=== PATIENT | male | born 1965 | race Caucasian/White ===

== ENCOUNTER 2021-02-02 05:48 | Inpatient (IN) | payer MEDICAID, SELFPAY ==
[2021-02-02] VITALS (38 sets, daily range): BP systolic 75–155; BP diastolic 35–72; PULSE 84–180; RESP 14–26; TEMP 35.5–37.5; O2SAT 80–100; BMI 36.1
--- NOTE | ~2021-02-02 | US_ITS ---
EXAMINATION: ULTRASOUND-GUIDED DRAINAGE CLINICAL INFORMATION: Sepsis. Right perinephric abscess. COMPARISON: Previous CT of the abdomen and pelvis from earlier the same day TECHNIQUE: Procedure and risks and benefits including bleeding and infection were discussed with the patient and sister by telephone and informed consent was obtained. Patient was positioned in the left decubitus position. The right flank was prepped and draped in the usual sterile fashion. The skin and soft tissues were anesthetized with 1% lidocaine plain. Using ultrasound guidance and a 5 [place] rapid centesis catheter, access to the complex right retroperitoneal fluid collection was obtained. Over an 018 wire and following serial dilatation, a 14 [place] pigtail drainage catheter was positioned. 3 L of brown purulent appearing fluid was aspirated. Diagnostic specimen was sent. The exam was performed portably in the ICU. FINDINGS: There is a large complex right retroperitoneal fluid collection with internal echoes. US/US drain daphne retro perc IMPRESSION: Ultrasound-guided right retroperitoneal drainage.
--- NOTE | ~2021-02-02 | CT_ITS ---
EXAMINATION: CT CHEST WITHOUT CONTRAST CLINICAL INFORMATION: Status post intubation. COMPARISON: None. TECHNIQUE: Multidetector volumetric CT imaging of the chest was done. Axial MIP volume rendering provided. Sagittal and coronal reformatted images were obtained. This CT examination was performed using dose optimization techniques as appropriate, variously including the following: *Automated exposure control *Adjustment of mA and/or kV according to patient size (this includes techniques or standardized protocols for targeted exams where dose is matched to indication/reason for exam; i.e. extremities or head) *Use of iterative reconstruction technique DLP: 1896 mGy-cm FINDINGS: DUMPSTER OPERATOR: Bibasilar atelectasis or consolidation. LUNGS: There is moderate fluid/mucus filling both lower lobe bronchi. There is consolidation and atelectasis of nearly the entire right lower lobe and some of the right middle lobe. There are ill-defined vaguely nodular opacity scattered in the right upper lobe suspicious for aspiration. There is less pronounced atelectasis or consolidation in the left lower lobe with a few scattered ill-defined vaguely nodular opacities in the superior segment of the left lower lobe. MEDIASTINUM: The endotracheal tube is 4.4 cm above the noelle. A nasogastric tube terminates in the thoracic esophagus. There are a few benign sized lymph nodes in the subcarinal region. There are scattered coronary artery calcifications. PLEURA: There is a moderate-sized loculated pleural effusion posteriorly at the base with air within the effusion, suspicious for an empyema. There is a small left pleural effusion with some scattered air, also suspicious for empyema. AXILLA: No lymphadenopathy. UPPER ABDOMEN: There is a large partially visualized complex fluid collection with some higher density components and scattered air in the right subcutaneous diaphragmatic region posterior to the liver suspicious for an abscess. OSSEOUS STRUCTURES: There is [id number] multilevel degenerative disc disease. 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 CT/CT chest wo con IMPRESSION: 1. Endotracheal tube 4.4 cm above the noelle. Nasogastric tube in the mid thoracic esophagus. 2. Moderate mucous plugging of the bilateral lower lobe bronchi. Consolidation and atelectasis of nearly the entire right lower lobe, some of the right middle lobe, and some of the left lower lobe. Scattered ill-defined nodular opacities in the right upper lobe and superior segment left lower lobe which may represent areas of aspiration. 3. Moderate-sized loculated right pleural effusion with air suspicious for empyema. Small left pleural effusion with some air, suspicious for empyema. 4. Complex right subdiaphragmatic fluid collection with air suspicious for abscess. This Critical Result was discussed with Ross He M.D. on 02/02/2021 at 1036 hours.
--- NOTE | ~2021-02-02 | XR_ITS ---
EXAMINATION: XR CHEST CLINICAL INFORMATION: Assess subclavian catheter placement COMPARISON: Earlier exam same day TECHNIQUE: Portable chest 8:43 PM view of the chest was obtained. FINDINGS: Overlying structures limit detail assessment. Right-sided central line in place unchanged. ET tube NG tube remains stable grossly. Left-sided subclavian line in place with its tip overlying the region of the confluence of brachiocephalic vein. The course is somewhat very straight and recommend correlation with placement and with any blood return to verify venous placement. No gross pneumothorax. Progressive pulmonary edema pattern. XR/XR chest 1V IMPRESSION: Limited imaging as above. Left-sided subclavian line placed as above. Correlate with blood return to verify venous access. No pneumothorax.
--- NOTE | ~2021-02-02 | XR_ITS ---
EXAMINATION: XR CHEST CLINICAL INFORMATION: Intubation. COMPARISON: CT chest from the same day. Chest and right ribs 07/26/2017. TECHNIQUE: Portable AP upright view of the chest was obtained. FINDINGS: The endotracheal tube is 4 cm above the noelle. The nasogastric tube terminates below the diaphragm. Right internal jugular central venous catheter terminates at the cavoatrial junction. There is bibasilar atelectasis/consolidation, right greater than left. The right lung base air may be related to the empyema identified on the CT scan from the same day. There are ill-defined scattered small vaguely nodular opacities in both lungs. XR/XR chest 1V IMPRESSION: Endotracheal tube 4 cm above the noelle. Nasogastric tube below the diaphragm. Bibasilar atelectasis/consolidation and scattered ill-defined lung opacities. Air at the right lung base could be related to the empyema identified on the CT chest.
--- NOTE | ~2021-02-02 | CT_ITS ---
EXAMINATION: CT ABDOMEN AND PELVIS WITHOUT CONTRAST CLINICAL INFORMATION: Status post intubation. Infection. COMPARISON: None. TECHNIQUE: Multidetector volumetric imaging was performed from the superior aspect of the liver through the pubic symphysis. Sagittal and coronal reformatted images were obtained on the technologist's workstation. This CT examination was performed using dose optimization techniques as appropriate, variously including the following: *Automated exposure control *Adjustment of mA and/or kV according to patient size (this includes techniques or standardized protocols for targeted exams where dose is matched to indication/reason for exam; i.e. extremities or head) *Use of iterative reconstruction technique DLP: 1896 mGy-cm (includes abdomen and pelvis) FINDINGS: LUNG BASES: See chest report for full details. There is mucus plugging in both lower lobe bronchi, prominent right lower lobe and right middle lobe atelectasis/consolidation, left lower lobe atelectasis/consolidation, moderate right and small left pleural effusions with air, suspicious for empyemas. LIVER, GALLBLADDER, AND BILIARY TREE: The liver is normal in size, shape, and attenuation. No focal hepatic lesion or biliary ductal dilatation is present. There is cholelithiasis. PERITONEAL/RETROPERITONEAL SPACE: There is a large complex fluid collection with some areas of low density fluid, air, and some fat in the right subdiaphragmatic region posterior to the liver and extending to the right lower quadrant. This appears to compress and displace the right kidney medially and superiorly. Some of this fluid/air may be in the perirenal space. This is suspicious for a large abscess which measures proximally 24 x 18 x 17 cm (CC x TRV x AP). There is some swelling and heterogeneity of the right iliopsoas muscle extending distally toward the femoral insertion site. PANCREAS: Unremarkable. SPLEEN: Unremarkable. ADRENAL GLANDS: Unremarkable. KIDNEYS AND URETERS: As stated above, the right kidney appears to be decompressed and displaced medially, superiorly and anteriorly by the large right abdominal abscess. There is no definite hydronephrosis. There are a few calcifications present in the region of the proximal right ureter but the ureter is not defined and is difficult to determine if these are possibly ureteral or vascular. The left kidney is somewhat swollen with perinephric streaky densities. There is mild left hydronephrosis. There is at least one calculus in the left renal pelvis measuring 5 mm in diameter. There are additional smaller calculi in the left renal sinus portion which could be vascular or additional small renal calculi. BLADDER: There is a suprapubic catheter in place. GASTROINTESTINAL TRACT: The small and large bowel are unremarkable. The appendix is unremarkable. ABDOMINAL WALL: No significant hernia is appreciated. LYMPH NODES: Normal. VASCULAR: There are scattered atherosclerotic calcifications in the abdominal aorta and iliac arteries. PELVIC VISCERA: Unremarkable. OSSEOUS STRUCTURES: There is mild multilevel degenerative disc disease. 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 CT/CT abdomen pelvis wo con IMPRESSION: 1. Large complex fluid collection in the right abdomen with fluid and air consistent with a large abscess. This compresses and displaces the right kidney. Some of the abscess may be in the perirenal space. There is swelling and heterogeneity of the adjacent right iliopsoas muscle which may represent extension of infection. 2. Small left kidney with renal calculi and possibly vascular calcifications, and mild hydronephrosis. This Critical Result was discussed with Ross He M.D. on 02/02/2021 at 1036 hours.
[2021-02-02 06:01] LABS: Hematocrit 31.9 % (42-52); Hemoglobin 9.4 g/dl (14.0-18.0); Mean Corpuscular HGB Conc 29.5 g/dl (31.0-36.0); Mean Corpuscular Hemoglobin 24.6 pg (27.0-33.0); Mean Corpuscular Volume 83.5 fL (80-98); Mean Platelet Volume 10.7 fL (9.4-12.4); NRBC Pct Auto 0.1 /100WBC (0.0-0.2); Platelet Count 589 X10*3/uL (160-400); Red Blood Count 3.82 X10*6/uL (4.60-5.80); Red Cell Distribution Width 18.2 % (11.0-16.0); WBC ABN SCTR FOR CBC 1
--- NOTE | 2021-02-02 06:05 | ECG_ITS ---
Test Reason : UNRESPONSIVE Blood Pressure : / mmHG Vent. Rate : 141 BPM Atrial Rate : 136 BPM P-R Int : 000 ms QRS Dur : 074 ms QT Int : 316 ms P-R-T Axes : 000 049 -06 degrees QTc Int : 484 ms Poor data quality, interpretation may be adversely affected Atrial fibrillation with rapid ventricular response Posterior infarct , age undetermined Abnormal ECG No previous ECGs available Referred By: Deyanira Campbell Electronically Signed By:ISMAEL ROBERTS
[2021-02-02 06:10] LABS: INTERNATIONAL NORM RATIO 2.4 (0.9-1.1); Prothrombin Time 27.7 SEC (9.9-13.0)
[2021-02-02 06:13] LABS: Partial Thromboplastin Time 56.9 SEC (24.1-38.0)
[2021-02-02 06:14] LABS: Venous Blood Gas Refer to POC result
[2021-02-02 06:15] LABS: VBG HCO3 11 mmol/L (22-26); VBG pCO2 45 mmHg; VBG pH 6.98 (7.32-7.43); VBG pO2 73 mmHg
[2021-02-02 06:24] LABS: Alanine Aminotransferase 35 U/L (0-40); Albumin Level 2.6 g/dL (3.5-5.0); Alkaline Phosphatase 246 U/L (39-117); Anion Gap 42 (12-20); Aspartate Amino Transferase 29 U/L (5-37); Bilirubin Total 1.7 mg/dL (0.0-1.0); Blood Urea Nitrogen 111 mg/dL (9-16); Calcium 9.6 mg/dL (8.4-10.2); Carbon Dioxide 10 mmol/L (22-29); Chloride 83 mmol/L (96-108); Estimated Glomerular Filt Rate 8; Glucose Random 245 mg/dL (60-115); Potassium 5.4 mmol/L (3.3-5.1); Sodium 130 mmol/L (135-145); Total Protein 7.1 g/dL (6.5-8.0)
--- NOTE | 2021-02-02 06:24 | ED_ITS ---
HPI - Abdominal Pain General Chief Complaint: Dyspnea Stated Complaint: Unresponsive Time Seen by Provider: 02/02/21 06:05 Source: EMS Mode of arrival: EMS History of Present Illness HPI narrative: 56-year-old male unable to provide any history. On review documentation patient appears to have a history of anxiety, hypertension. However, as per EMS he told them prior to becoming unresponsive that he was being treated for kidney stones. Related Data Allergies Allergy/AdvReac Type Severity Reaction Status Date / Time No Known Allergies Allergy Unverified 02/20/20 15:18 [No Known Allergies*] Review of Systems Review of Systems Yes unobtainable due to endotracheal tube and Unobtainable due to mental condi tion Physical Exam Vital Signs: Vital Signs: Last Vital Signs Pulse 85 02/02/21 07:33 Resp 20 02/02/21 07:33 BP 102/42 L 02/02/21 07:33 Pulse Ox 100 02/02/21 07:33 Body Mass Index 36.1 VITAL SIGNS: Reviewed. GENERAL: Chronically ill, anasarca, acute distress. HEAD: Normocephalic/atraumatic EYES: PERRLA EARS: Ext canals without abnormality, TMs non-bulging and non-erythematous NOSE: Nares patent bilateral OROPHARYNX: no oral lesions noted, posterior pharynx visualized on intubation and noted to have greenish mucus NECK: Supple, no adenopathy LUNGS: Normal breath sounds. No adventitious sounds or accessory muscle use. SpO2<100> CARDIOVASCULAR: Regular rate and rhythm without noted murmurs, no JVD 3+ lower extremity pitting edema ABDOMEN: Obese, Soft, non-tender, non-distended without bowel sounds. MUSCULOSKELETAL: No tenderness, deformities, or effusions noted on gross inspection. EXTREMITIES: Mottling of extremities and cool to the touch with 3+ pitting edema SKIN: Inspection of the skin reveals mottling of extremity NEUROLOGIC: GCS-3 Procedures Intubation Time out performed: No sedative: none Laryngoscope: fiber optic video scope ET Tube Size: 8 ET Tube Uncuffed: No Tube Secured Depth (cm): 26 Tube Secured Location: lips Tube Placement Confirmation: visualized tube passing through cords, equal breath sounds bilaterally, no breath sounds over epigastrium and confirmation by capnometry Patient Tolerated Procedure: well Intubation Complications: none Course Course Course Narrative: 56-year-old male with history and clinical presentation after review of all investigations most consistent with sepsis given the history of being treated for kidney stones and findings of severe urinary retention. Patient was emergently intubated on arrival and noted by bedside echo to have c ardiac activity, multiple attempts with Villafana catheter were unsuccessful and urology was contacted. The patient was placed on sedation and then subsequently had to be started on Levophed for blood pressure support. In addition, patient received Lopressor after noted 12 lead EKG demonstrated atrial fibrillation with RVR. I discussed case with the graphics programmer and patient will be treated with 2 amps of bicarb, 10U insulin, 1/2 amp D50, 2 g calcium gluconate, with 2 g Rocephin. Patient remained in RVR and 10 mg of Cardizem were administered with resolution of atrial fibrillation and RVR. Patient also received approximately 3 L of IV fluid. 0629: Contacted Dr. Fay for emergent placement of Villafana catheter given the patient's bladder is over 1 L and unable to access. Care turned over to Dr He MDM - Abdominal Pain Lab Data Result diagrams: 02/02/21 05:54 02/02/21 05:55 Labs: Lab Results 02/02/21 02/02/21 02/02/21 Range/Units 05:54 05:54 05:54 WBC 67.0 H* (4.8-10.8) X10*3/uL RBC 3.82 L (4.60-5.80) X10*6/uL Hgb 9.4 L (14.0-18.0) g/dl Hct 31.9 L (42-52) % MCV 83.5 (80-98) fL MCH 24.6 L (27.0-33.0) pg MCHC 29.5 L (31.0-36.0) g/dl RDW 18.2 H (11.0-16.0) % Plt Count 589 H (160-400) X10*3/uL MPV 10.7 (9.4-12.4) fL Immature Gran % (Auto) Cancelled Neut % (Auto) Cancelled Lymph % (Auto) Cancelled [place] % (Auto) Cancelled Eos % (Auto) Cancelled Baso % (Auto) Cancelled Lymph # (Auto) Cancelled [place] # (Auto) Cancelled Eos # (Auto) Cancelled Baso # (Auto) Cancelled Abs Immat Gran (auto) Cancelled Absolute Neuts (auto) Cancelled Absolute Nucleated RBC 0.050 H (0.0-0.012) X10*3/uL Nucleated RBC % (auto) 0.1 (0.0-0.2) /100WBC Neutrophils % (Manual) 64 (45-73) % Band Neutrophils % 26 H (3-5) % Lymphocytes % (Manual) 3 L (20-40) % Monocytes % (Manual) 6 (2-11) % Metamyelocytes % 1 % Abs Neuts (Manual) 60.3 H (2.2-7.9) X10*3/uL Lymphocytes # (Manual) 2.0 (0.6-4.8) X10*3/uL Monocytes # (Manual) 4.0 H (0.0-1.2) X10*3/uL Metamyelocytes # 0.7 X10*3/uL Toxic Vacuolation PRESENT Platelet Estimate INCREASED (NORMAL) Large Platelets PRESENT Plt Morphology Comment NOTED RBC Morphology NOTED Polychromasia 1+ (0-2) /OIF PT (9.9-13.0) SEC INR (0.9-1.1) APTT (24.1-38.0) SEC VBG pH (7.32-7.43) VBG pCO2 mmHg VBG pO2 mmHg VBG HCO3 (22-26) mmol/L VBG O2 Saturation % VBG Base Excess mmol/L Sodium (135-145) mmol/L Potassium (3.3-5.1) mmol/L Chloride (96-108) mmol/L Carbon Dioxide (22-29) mmol/L Anion Gap (12-20) BUN (9-16) mg/dL Creatinine (0.5-1.4) mg/dL Estim Creat Clear Calc Estimated GFR Random Glucose (60-115) mg/dL Lactic Acid 18.8 H* (0.5-2.0) mmol/L Calcium (8.4-10.2) mg/dL Total Bilirubin (0.0-1.0) mg/dL AST (5-37) U/L ALT (0-40) U/L Alkaline Phosphatase (39-117) U/L Troponin I High Sens 10.3 (<3.5-35.0) ng/L B-Natriuretic Peptide 103 H (<100) pg/mL Total Protein (6.5-8.0) g/dL Albumin (3.5-5.0) g/dL COVID-19 (REMY) (Negative) COVID-19 Clin Com 02/02/21 02/02/21 02/02/21 Range/Units 05:55 05:59 05:59 WBC (4.8-10.8) X10*3/uL RBC (4.60-5.80) X10*6/uL Hgb (14.0-18.0) g/dl Hct (42-52) % MCV (80-98) fL MCH (27.0-33.0) pg MCHC (31.0-36.0) g/dl RDW (11.0-16.0) % Plt Count (160-400) X10*3/uL MPV (9.4-12.4) fL Immature Gran % (Auto) Neut % (Auto) Lymph % (Auto) [place] % (Auto) Eos % (Auto) Baso % (Auto) Lymph # (Auto) [place] # (Auto) Eos # (Auto) Baso # (Auto) Abs Immat Gran (auto) Absolute Neuts (auto) Absolute Nucleated RBC (0.0-0.012) X10*3/uL Nucleated RBC % (auto) (0.0-0.2) /100WBC Neutrophils % (Manual) (45-73) % Band Neutrophils % (3-5) % Lymphocytes % (Manual) (20-40) % Monocytes % (Manual) (2-11) % Metamyelocytes % % Abs Neuts (Manual) (2.2-7.9) X10*3/uL Lymphocytes # (Manual) (0.6-4.8) X10*3/uL Monocytes # (Manual) (0.0-1.2) X10*3/uL Metamyelocytes # X10*3/uL Toxic Vacuolation Platelet Estimate (NORMAL) Large Platelets Plt Morphology Comment RBC Morphology Polychromasia /OIF PT 27.7 H (9.9-13.0) SEC INR 2.4 H (0.9-1.1) APTT 56.9 H (24.1-38.0) SEC VBG pH (7.32-7.43) VBG pCO2 mmHg VBG pO2 mmHg VBG HCO3 (22-26) mmol/L VBG O2 Saturation % VBG Base Excess mmol/L Sodium 130 L (135-145) mmol/L Potassium 5.4 H (3.3-5.1) mmol/L Chloride 83 L (96-108) mmol/L Carbon Dioxide 10 L* (22-29) mmol/L Anion Gap 42 H (12-20) BUN 111 H* (9-16) mg/dL Creatinine 7.18 H* (0.5-1.4) mg/dL Estim Creat Clear Calc TNP Estimated GFR 8 Random Glucose 245 H (60-115) mg/dL Lactic Acid (0.5-2.0) mmol/L Calcium 9.6 (8.4-10.2) mg/dL Total Bilirubin 1.7 H (0.0-1.0) mg/dL AST 29 (5-37) U/L ALT 35 (0-40) U/L Alkaline Phosphatase 246 H (39-117) U/L Troponin I High Sens (<3.5-35.0) ng/L B-Natriuretic Peptide (<100) pg/mL Total Protein 7.1 (6.5-8.0) g/dL Albumin 2.6 L (3.5-5.0) g/dL COVID-19 (REMY) (Negative) COVID-19 Clin Com See Note 02/02/21 02/02/21 Range/Units 06:04 06:48 WBC (4.8-10.8) X10*3/uL RBC (4.60-5.80) X10*6/uL Hgb (14.0-18.0) g/dl Hct (42-52) % MCV (80-98) fL MCH (27.0-33.0) pg MCHC (31.0-36.0) g/dl RDW (11.0-16.0) % Plt Count (160-400) X10*3/uL MPV (9.4-12.4) fL Immature Gran % (Auto) Neut % (Auto) Lymph % (Auto) [place] % (Auto) Eos % (Auto) Baso % (Auto) Lymph # (Auto) [place] # (Auto) Eos # (Auto) Baso # (Auto) Abs Immat Gran (auto) Absolute Neuts (auto) Absolute Nucleated RBC (0.0-0.012) X10*3/uL Nucleated RBC % (auto) (0.0-0.2) /100WBC Neutrophils % (Manual) (45-73) % Band Neutrophils % (3-5) % Lymphocytes % (Manual) (20-40) % Monocytes % (Manual) (2-11) % Metamyelocytes % % Abs Neuts (Manual) (2.2-7.9) X10*3/uL Lymphocytes # (Manual) (0.6-4.8) X10*3/uL Monocytes # (Manual) (0.0-1.2) X10*3/uL Metamyelocytes # X10*3/uL Toxic Vacuolation Platelet Estimate (NORMAL) Large Platelets Plt Morphology Comment RBC Morphology Polychromasia /OIF PT (9.9-13.0) SEC INR (0.9-1.1) APTT (24.1-38.0) SEC VBG pH 6.98 L* (7.32-7.43) VBG pCO2 45 mmHg VBG pO2 73 mmHg VBG HCO3 11 L (22-26) mmol/L VBG O2 Saturation 75.0 % VBG Base Excess -20.0 mmol/L Sodium (135-145) mmol/L Potassium (3.3-5.1) mmol/L Chloride (96-108) mmol/L Carbon Dioxide (22-29) mmol/L Anion Gap (12-20) BUN (9-16) mg/dL Creatinine (0.5-1.4) mg/dL Estim Creat Clear Calc Estimated GFR Random Glucose (60-115) mg/dL Lactic Acid (0.5-2.0) mmol/L Calcium (8.4-10.2) mg/dL Total Bilirubin (0.0-1.0) mg/dL AST (5-37) U/L ALT (0-40) U/L Alkaline Phosphatase (39-117) U/L Troponin I High Sens (<3.5-35.0) ng/L B-Natriuretic Peptide (<100) pg/mL Total Protein (6.5-8.0) g/dL Albumin (3.5-5.0) g/dL COVID-19 (REMY) Negative (Negative) COVID-19 Clin Com See Note ECG Data Attestation: I personally reviewed and interpreted this ECG as follows: Prior ECG tracings: not available for review Interpretation: Atrial fibrillation with RVR, HR-141, no STEMI, QRS/QTC within normal limits. Critical Care Time Critical Care Time Critical Care Time: Yes Total Critical Care Time: 60 Attestation: I personally attest to this time spent taking care of the patient. Discharge Plan Discharge Clinical Impression: Sepsis, Acute respiratory failure, Atrial fibrillation with RVR, Acute urinary retention Patient Disposition: Admitted As Inpatient PENDING SALE TO [facility] Past Medical History PENDING SALE TO [facility] Narrative: Hypertension, anxiety Source: unable to obtain and old records reviewed Social History Social History Advance Directives: No Advance Directives Information Provided: No
[2021-02-02 06:25] LABS: B Type Natriuretic Peptide 103 pg/mL (<100); Troponin-I High Sensitivity 10.3 ng/L (<3.5-35.0)
[2021-02-02 06:28] LABS: Band Neutrophils Percent 26 % (3-5); Lymphocytes Percent Manual 3 % (20-40); Metamyelocytes Absolute 0.7 X10*3/uL; Metamyelocytes Percent 1 %; Monocytes Percent Manual 6 % (2-11); Neutrophils Absolute Manual 60.3 X10*3/uL (2.2-7.9); Neutrophils Percent Manual 64 % (45-73)
[2021-02-02 06:29] LABS: RBC Morphology NOTED
[2021-02-02 06:30] LABS: Large Platelet PRESENT; Platelet Estimate INCREASED (NORMAL); Platelet Morphology Comment NOTED; Polychromasia 1+ (0-2) /OIF; Toxic Vacuolation PRESENT
[2021-02-02 06:36] LABS: Lactic Acid 18.8 mmol/L (0.5-2.0)
[2021-02-02] MEDS: Midazolam HCl/PF 2 MG/2 ML VIAL IVPUSH ×4 (06:57→07:46)
[2021-02-02] MEDS: propofoL 500 MG/50 ML VIAL IVCONT ×2 (06:57→10:18)
[2021-02-02] MEDS: Metoprolol Tartrate 5 MG/5 ML VIAL IVPUSH ×2 (06:58→07:08)
[2021-02-02] MEDS: Calcium Gluconate/NaCl,Iso-Osm 2 GM/100 ML PLAST..BAG IV ×2 (07:08→11:31)
--- NOTE | 2021-02-02 07:14 | PC.NURSE ---
SEE PAPER CHARTING FOR MEDICATION ADMINISTRATION AND TREATMENTS. ATTEMPTS FOR RAMIREZ BY MD ALLEN ON ARRIVAL, UNABLE TO OBTAIN. CALL PLACED TO UROLOGY.
[2021-02-02] MEDS: dilTIAZem HCL 50 MG/10 ML VIAL 10 MG IVPUSH ×2 (07:24→15:26)
[2021-02-02 07:30] LABS: COVID-19 Test Negative (Negative); IDNOW Serial# 9DD0AD1C
[2021-02-02] MEDS: fentaNYL citrate/NS 1,000 MCG/100 ML PLAST..BAG 5 MCG IVCONT (07:33)
[2021-02-02] MEDS: fentaNYL citrate/PF 100 MCG/2 ML VIAL IVPUSH (07:33)
--- NOTE | 2021-02-02 07:37 | PC.NURSE ---
DAVID OBANDO VERBAL ORDERS FOR 100MCG FENTYNAL IV PUSH.
--- NOTE | 2021-02-02 07:44 | PC.NURSE ---
DAVID OBANDO VERBAL FOR 2 OF VERSED IV PUSH, STATING GIVE ANOTHER 2MG A FEW MINUTES LATER NEEDED FOR SEDATION WHILE DRIP OF VERSED IS BEING PREPARED. TOTAL OF 4 MG VERBAL ORDER FROM DAVID OBANDO ICU
--- NOTE | 2021-02-02 07:55 | PC.NURSE ---
vs 98/59-24-93% on 90%- 92. 0756: vs 100/620-25-97% on 90%, capnography 37, magdiel wesley at beside inserting central line. 0801: 92-94% on 100%-23,11capnography 36, 117/56. 0803:111/55- 93-93% on 100%-24, capnogrqaphy 35. 0805 - dr. jerez at bedside to insert wakefield cath
--- NOTE | 2021-02-02 08:00 | PC.NURSE ---
pt received ns 3l boluses total.
[2021-02-02 08:01] LABS: Reflex Lactate? Lactic Acid Added
[2021-02-02] MEDS: Rocuronium Bromide 50 MG/5 ML VIAL IVPUSH (08:13)
--- NOTE | 2021-02-02 08:13 | PC.NURSE ---
icu md at bedside, new order for rocuronium 50mg ivp x 1
--- NOTE | 2021-02-02 08:20 | PC.NURSE ---
0821: 126/63(84)-94-14, capnography 44, 77% on 80% 02, 02 increased tto 100%,. dr jerez placed a suprapubic cath with # 16 wakefield cath 0834: 94-80% on 100%-14-capnnography 46, 96.8,
[2021-02-02] MEDS: Phytonadione (Vit K1) 10 MG in 0.9 % Sodium Chloride 50 ML 51 MG IV ×2 (09:22→12:00)
[2021-02-02] MEDS: cefTRIAXone sodium 2 GM in 0.9 % Sodium Chloride 50 ML IV (09:29)
[2021-02-02 09:30] LABS: VBG Base Excess -15.9 mmol/L; VBG HCO3 14 mmol/L (22-26); VBG pCO2 53 mmHg; VBG pH 7.03 (7.32-7.43); VBG pO2 118 mmHg
[2021-02-02 09:32] LABS: Venous Blood Gas Refer to POC result
--- NOTE | 2021-02-02 09:35 | PC.NURSE ---
vss at 0933 - 87-91% on 100% (vent) 14, 123/79
--- NOTE | 2021-02-02 09:47 | PC.NURSE ---
wakefield output 700cc
[2021-02-02] MEDS: Midazolam HCl/NS 50 MG/50 ML PLAST..BAG IVCONT (09:54)
[2021-02-02 09:56] LABS: Anion Gap 29 (12-20); Blood Urea Nitrogen 108 mg/dL (9-16); Calcium 8.3 mg/dL (8.4-10.2); Carbon Dioxide 18 mmol/L (22-29); Chloride 91 mmol/L (96-108); Creatinine Clr Calc Pharmacy 16.9; Estimated Glomerular Filt Rate 9; Glucose Random 153 mg/dL (60-115); Magnesium 2.9 mg/dL (1.6-2.6); Phosphorus 12.1 mg/dL (2.7-4.5); Potassium 5.2 mmol/L (3.3-5.1); Sodium 133 mmol/L (135-145)
[2021-02-02 10:05] LABS: Appearance Urine CLOUDY; Color Urine YELLOW; Glucose Urine UA NEG (NEG); Leukocyte Esterase Urine 2+ (NEG); Nitrite Urine NEG (NEG); PH 5.5 (5.0-8.0); Urine Blood 3+ (NEG); Urine Ketones NEG (NEG); Urine Protein 2+ MG/DL (NEG-TRACE)
[2021-02-02 10:06] LABS: Procalcitonin 28.86 ng/mL
[2021-02-02 10:14] LABS: Bacteria Urine 4+ /LPF; Squamous Epithelial Cell Urine TRACE /LPF; WBC Urine 50-75 /HPF (0-4)
--- NOTE | 2021-02-02 10:15 | PC.NURSE ---
NURSE TO NURSE GIVEN TO BRIGIDO ZIMMERMAN.
[2021-02-02 10:43] LABS: Glucose, Whole Blood 207 mg/dL (60-115)
[2021-02-02] MEDS: Sodium Bicarbonate 8.4% 50 MEQ/50 ML VIAL 100 MEQ IVPUSH (11:30)
[2021-02-02 11:31] LABS: Reflex Lactate? 2 Y
[2021-02-02] MEDS: propofoL 1,000 MG/100 ML VIAL 14.52 MG IVCONT ×3 (11:31→18:33)
[2021-02-02] MEDS: fentaNYL citrate/NS 1,000 MCG/100 ML PLAST..BAG 20 MCG IVCONT (11:50)
[2021-02-02 12:10] LABS: ~Lactic Acid-LAB USE ONLY 11.7 mmol/L (0.5-2.0)
--- NOTE | 2021-02-02 12:13 | PC.NURSE ---
Skin/Wound assessment completed today. Patient has moisture associated skin damage with a small 0.5 x.0.5 pressure ulcer on sacrum. Triad is being applied covered by large foam. Patients legs are edematous with a small blister on right foot-some weeping occurring. Leg elevation in place. No other skin issues at this moment. Will continue to monitor.
--- NOTE | 2021-02-02 12:18 | P.CNUR_ITS ---
History of Present Illness Consult details Consult date: 02/02/21 Narrative: Asked to see patient regarding difficult Villafana catheter placement ER staff unable to place Villafana catheter Patient with urinary retention Unable to place Villafana catheter Bedside cystoscopy performed Narrowed stricture found Unable to navigate with wire Decision to place suprapubic tube Using ultrasound showed full bladder in midline with no overlying bowel Local anesthetic infiltrated 1 cm incision made Trocar placed with 16 Amharic Villafana catheter insertion 900 cc drained from bladder Will continue to follow [facility] Social History Social History Advance Directives: No Advance Directives Information Provided: No Meds Allergies Allergy/AdvReac Type Severity Reaction Status Date / Time No Known Allergies Allergy Unverified 02/20/20 15:18 [No Known Allergies*] Active Medications: Current Medications Generic Name Dose Route Start Last Admin Trade Name Freq PRN Reason Stop Dose Admin Norepinephrine Bitartrate 8 mg in 250 mls @ 272.25 mls/hr 02/02/21 06:30 02/02/21 11:51 Levophed IVCONT 0.4 mcg/kg/min .Q56M MARÍA 90.75 mls/hr Titration Protocol 1.2 MCG/KG/MIN Fentanyl 1,000 mcg in 100 mls @ 5 mls/hr 02/02/21 07:15 02/02/21 11:50 Sublimaze/Ns IVCONT 200 mcg/hr .Q20H MARÍA 20 mls/hr Administration Protocol 50 MCG/HR Midazolam HCl 50 mg in 50 mls @ 2 mls/hr 02/02/21 07:45 02/02/21 11:30 Versed IVCONT 1 mg/hr .Q24H MARÍA 1 mls/hr Infusion 2 MG/HR Propofol 1,000 mg in 100 mls @ 3.63 mls/hr 02/02/21 09:30 02/02/21 11:31 Diprivan IVCONT 20 mcg/kg/min .Q24H MARÍA 14.52 mls/hr Administration Protocol 5 MCG/KG/MIN Calcium Gluconate 2 gm in 100 mls @ 50 mls/hr 02/02/21 12:00 02/02/21 11:31 Calcium Gluconate IV 02/02/21 13:59 50 mls/hr ONCE ONE Administration Sodium Bicarbonate 150 meq/ 1,000 mls @ 100 mls/hr 02/02/21 11:15 Dextrose IV .Q10H MARÍA Phytonadione 10 mg/ Sodium 51 mls @ 51 mls/hr 02/02/21 12:00 Chloride IV 02/02/21 12:59 ONCE ONE Naloxone HCl 0.2 mg 02/02/21 07:09 Naloxone Hcl 0.4 Mg/Ml Vial IVPUSH Q2M PRN Excessive sedation or RR < 8 Sodium Bicarbonate 50 meq 02/02/21 06:57 Sodium Bicarbonate 8.4% 50 Meq/50 Ml Vial IVPUSH 02/03/21 06:58 ONCE MARÍA Sodium Zirconium Cyclosilicate 10 gm 02/02/21 15:00 Sodium Zirconium Cyclosilicate 10 Gm Powd.Pack OG-TUBE 02/04/21 09:01 TID MARÍA Physical Exam Vital Signs: Vital Signs: Last Vital Signs Temp 98.1 F 02/02/21 11:55 Pulse 92 02/02/21 11:55 Resp 22 H 02/02/21 11:55 BP 112/45 L 02/02/21 11:55 Pulse Ox 86 L 02/02/21 11:00 Body Mass Index 36.1 Const: Other: Patient intubated with acute distress Resp: Other: Abnormal respiratory pad Cardio: Jugular venous distension: JVD Extrem: Other: Mottled with poor perfusion Results Labs Result diagrams: 02/02/21 05:54 02/02/21 09:19 Labs: Abnormal lab results 02/02/21 02/02/21 02/02/21 Range/Units 05:53 05:54 05:54 WBC 67.0 H* (4.8-10.8) X10*3/uL RBC 3.82 L (4.60-5.80) X10*6/uL Hgb 9.4 L (14.0-18.0) g/dl Hct 31.9 L (42-52) % MCH 24.6 L (27.0-33.0) pg MCHC 29.5 L (31.0-36.0) g/dl RDW 18.2 H (11.0-16.0) % Plt Count 589 H (160-400) X10*3/uL Absolute Nucleated RBC 0.050 H (0.0-0.012) X10*3/uL Band Neutrophils % 26 H (3-5) % Lymphocytes % (Manual) 3 L (20-40) % Abs Neuts (Manual) 60.3 H (2.2-7.9) X10*3/uL Monocytes # (Manual) 4.0 H (0.0-1.2) X10*3/uL PT (9.9-13.0) SEC INR (0.9-1.1) APTT (24.1-38.0) SEC VBG pH (7.32-7.43) VBG HCO3 (22-26) mmol/L Sodium (135-145) mmol/L Potassium (3.3-5.1) mmol/L Chloride (96-108) mmol/L Carbon Dioxide (22-29) mmol/L Anion Gap (12-20) BUN (9-16) mg/dL Creatinine (0.5-1.4) mg/dL POC Glucose 207 H (60-115) mg/dL Random Glucose (60-115) mg/dL Lactic Acid 18.8 H* (0.5-2.0) mmol/L Lactic Acid Fup @ 2Hr (0.5-2.0) mmol/L Lactic Acid Fup @ 4Hr (0.5-2.0) mmol/L Calcium (8.4-10.2) mg/dL Phosphorus (2.7-4.5) mg/dL Magnesium (1.6-2.6) mg/dL Total Bilirubin (0.0-1.0) mg/dL Alkaline Phosphatase (39-117) U/L Total Creatine Kinase (38-174) U/L B-Natriuretic Peptide (<100) pg/mL Albumin (3.5-5.0) g/dL Urine Protein (NEG-TRACE) MG/DL Urine Blood (NEG) Ur Leukocyte Esterase (NEG) Urine RBC (0) /HPF Urine WBC (0-4) /HPF 02/02/21 02/02/21 02/02/21 Range/Units 05:54 05:55 05:59 WBC (4.8-10.8) X10*3/uL RBC (4.60-5.80) X10*6/uL Hgb (14.0-18.0) g/dl Hct (42-52) % MCH (27.0-33.0) pg MCHC (31.0-36.0) g/dl RDW (11.0-16.0) % Plt Count (160-400) X10*3/uL Absolute Nucleated RBC (0.0-0.012) X10*3/uL Band Neutrophils % (3-5) % Lymphocytes % (Manual) (20-40) % Abs Neuts (Manual) (2.2-7.9) X10*3/uL Monocytes # (Manual) (0.0-1.2) X10*3/uL PT 27.7 H (9.9-13.0) SEC INR 2.4 H (0.9-1.1) APTT 56.9 H (24.1-38.0) SEC VBG pH (7.32-7.43) VBG HCO3 (22-26) mmol/L Sodium 130 L (135-145) mmol/L Potassium 5.4 H (3.3-5.1) mmol/L Chloride 83 L (96-108) mmol/L Carbon Dioxide 10 L* (22-29) mmol/L Anion Gap 42 H (12-20) BUN 111 H* (9-16) mg/dL Creatinine 7.18 H* (0.5-1.4) mg/dL POC Glucose (60-115) mg/dL Random Glucose 245 H (60-115) mg/dL Lactic Acid (0.5-2.0) mmol/L Lactic Acid Fup @ 2Hr (0.5-2.0) mmol/L Lactic Acid Fup @ 4Hr (0.5-2.0) mmol/L Calcium (8.4-10.2) mg/dL Phosphorus (2.7-4.5) mg/dL Magnesium (1.6-2.6) mg/dL Total Bilirubin 1.7 H (0.0-1.0) mg/dL Alkaline Phosphatase 246 H (39-117) U/L Total Creatine Kinase 35 L (38-174) U/L B-Natriuretic Peptide 103 H (<100) pg/mL Albumin 2.6 L (3.5-5.0) g/dL Urine Protein (NEG-TRACE) MG/DL Urine Blood (NEG) Ur Leukocyte Esterase (NEG) Urine RBC (0) /HPF Urine WBC (0-4) /HPF 08/31/21 08/31/21 08/31/21 Range/Units 06:04 09:19 09:19 WBC (4.8-10.8) X10*3/uL RBC (4.60-5.80) X10*6/uL Hgb (14.0-18.0) g/dl Hct (42-52) % MCH (27.0-33.0) pg MCHC (31.0-36.0) g/dl RDW (11.0-16.0) % Plt Count (160-400) X10*3/uL Absolute Nucleated RBC (0.0-0.012) X10*3/uL Band Neutrophils % (3-5) % Lymphocytes % (Manual) (20-40) % Abs Neuts (Manual) (2.2-7.9) X10*3/uL Monocytes # (Manual) (0.0-1.2) X10*3/uL PT (9.9-13.0) SEC INR (0.9-1.1) APTT (24.1-38.0) SEC VBG pH 6.98 L* (7.32-7.43) VBG HCO3 11 L (22-26) mmol/L Sodium 133 L (135-145) mmol/L Potassium 5.2 H (3.3-5.1) mmol/L Chloride 91 L (96-108) mmol/L Carbon Dioxide 18 L (22-29) mmol/L Anion Gap 29 H (12-20) BUN 108 H* (9-16) mg/dL Creatinine 6.52 H* (0.5-1.4) mg/dL POC Glucose (60-115) mg/dL Random Glucose 153 H D (60-115) mg/dL Lactic Acid (0.5-2.0) mmol/L Lactic Acid Fup @ 2Hr 12.0 H* (0.5-2.0) mmol/L Lactic Acid Fup @ 4Hr (0.5-2.0) mmol/L Calcium 8.3 L D (8.4-10.2) mg/dL Phosphorus 12.1 H (2.7-4.5) mg/dL Magnesium 2.9 H (1.6-2.6) mg/dL Total Bilirubin (0.0-1.0) mg/dL Alkaline Phosphatase (39-117) U/L Total Creatine Kinase (38-174) U/L B-Natriuretic Peptide (<100) pg/mL Albumin (3.5-5.0) g/dL Urine Protein (NEG-TRACE) MG/DL Urine Blood (NEG) Ur Leukocyte Esterase (NEG) Urine RBC (0) /HPF Urine WBC (0-4) /HPF 02/02/21 02/02/21 02/02/21 Range/Units 09:25 09:48 11:43 WBC (4.8-10.8) X10*3/uL RBC (4.60-5.80) X10*6/uL Hgb (14.0-18.0) g/dl Hct (42-52) % MCH (27.0-33.0) pg MCHC (31.0-36.0) g/dl RDW (11.0-16.0) % Plt Count (160-400) X10*3/uL Absolute Nucleated RBC (0.0-0.012) X10*3/uL Band Neutrophils % (3-5) % Lymphocytes % (Manual) (20-40) % Abs Neuts (Manual) (2.2-7.9) X10*3/uL Monocytes # (Manual) (0.0-1.2) X10*3/uL PT (9.9-13.0) SEC INR (0.9-1.1) APTT (24.1-38.0) SEC VBG pH 7.03 L* (7.32-7.43) VBG HCO3 14 L (22-26) mmol/L Sodium (135-145) mmol/L Potassium (3.3-5.1) mmol/L Chloride (96-108) mmol/L Carbon Dioxide (22-29) mmol/L Anion Gap (12-20) BUN (9-16) mg/dL Creatinine (0.5-1.4) mg/dL POC Glucose (60-115) mg/dL Random Glucose (60-115) mg/dL Lactic Acid (0.5-2.0) mmol/L Lactic Acid Fup @ 2Hr (0.5-2.0) mmol/L Lactic Acid Fup @ 4Hr 11.7 H* (0.5-2.0) mmol/L Calcium (8.4-10.2) mg/dL Phosphorus (2.7-4.5) mg/dL Magnesium (1.6-2.6) mg/dL Total Bilirubin (0.0-1.0) mg/dL Alkaline Phosphatase (39-117) U/L Total Creatine Kinase (38-174) U/L B-Natriuretic Peptide (<100) pg/mL Albumin (3.5-5.0) g/dL Urine Protein 2+ H (NEG-TRACE) MG/DL Urine Blood 3+ H (NEG) Ur Leukocyte Esterase 2+ H (NEG) Urine RBC 76-150 H (0) /HPF Urine WBC 50-75 H (0-4) /HPF Short CBC 02/02/21 Range/Units 05:54 WBC 67.0 H* (4.8-10.8) X10*3/uL Hgb 9.4 L (14.0-18.0) g/dl Hct 31.9 L (42-52) % Plt Count 589 H (160-400) X10*3/uL BMP 02/02/21 02/02/21 05:55 09:19 Sodium 130 L 133 L Potassium 5.4 H 5.2 H Chloride 83 L 91 L Carbon Dioxide 10 L* 18 L BUN 111 H* 108 H* Creatinine 7.18 H* 6.52 H* Calcium 9.6 8.3 L D Cardiac Enzymes 02/02/21 Range/Units 05:55 Total Creatine Kinase 35 L (38-174) U/L Liver Function 02/02/21 Range/Units 05:55 Total Bilirubin 1.7 H (0.0-1.0) mg/dL AST 29 (5-37) U/L ALT 35 (0-40) U/L Alkaline Phosphatase 246 H (39-117) U/L Albumin 2.6 L (3.5-5.0) g/dL Urine 02/02/21 Range/Units 09:48 Urine Color YELLOW Urine Appearance CLOUDY Urine pH 5.5 (5.0-8.0) Ur Specific [place] 1.020 (1.005-1.025) Urine Protein 2+ H (NEG-TRACE) MG/DL Urine Glucose (UA) NEG (NEG) MG/DL All other labs normal. Assessment and Plan (1) Acute urinary retention: Status: Acute Suprapubic tube to remain until medical condition stabilized Procedures Date of Service Date of Service: 02/02/21 Catheter Insertion (Urinary) Date of insertion: 02/02/21 Reason for placing: Acute urinary retention Estimated amount of urine (mLs): 900 Catheter type/location: Suprapubic Size (Amharic): 16 Procedure performed: without complications
[2021-02-02] MEDS: Sodium Bicarbonate 8.4% 150 MEQ in Dextrose 5 % 850 ML 100 MEQ IV (12:26)
--- NOTE | 2021-02-02 12:28 | P.HPCC_ITS ---
History of Present Illness Date of Service: 02/02/21 Mr. Arroyo is admitted to the ICU this morning with septic shock and multiple organ system failure. The patient is a 56 yo M w reported h/o anxiety, hypertension, and kidney stones.? According to the patient?s sister Susannah ([phone]), the patient li ves with their father in [facility].? He is his father?s [employer].? He?s been doing that for ten years.? He never goes to the doctor.? He has a history of hypertension, but does not take any medicines.? Last time he went to see the doctor was a visit to the ED years ago for kidney stone, which runs in the family.? He also uses a lot of chewing tobacco. According to Marcie, the patient has been having pain in his right side for 4-6 weeks, and trouble going to the bathroom, although on not sure exactly what that means.? He has been feeling very weak and recently told his sister that he could not walk.? He became unresponsive this morning, and another sister who lives in the same building called the ambulance. He was brought in to the ED by ambulance this morning about 6am with a GCS of 3, according to Dr. Quintanilla.? I have no other information.? The patient was intubated in the ED immediately upon arrival.? Initial vital signs according to the [facility] records include a heart rate of 150 and a blood pressure of 118/67.? Reportedly he was in atrial fibrillation.? No sat was able to be obtained.? Post intubation, his blood pressure dropped to 88/42.? He was noted to be severely edematous.? He was seen by CHRIS Power in the ED.? He was given 10 mg diltiazem, and converted to sinus rhythm at a heart rate of 85, with a blood pressure 102/42.? First reliable sat obtained with the patient on mechanical ventilation was a sat of 86% on FiO2 100%/+5.? On exam the patient was noted to have no JVD, and 3+ lower extremity pitting edema.? The abdomen was nondistended, without bowel sounds.? Lower extremities were mottled. Labs in the ED revealed a white count of 67, hemoglobin 9.4, and platelet count of [id number].? PT was 27/2.4, PTT was 56.? Sodium is 130, potassium 5.4, chloride 83, bicarb 10, BUN/creatinine 111/7.1, glucose 245, calcium 9.6, total bili 1.7, normal AST and ALT, alk phos 246, CPK was 35, albumin is 2.6.? Lactic acid was 18, troponin was 10. COVID Tea was negative. ?Venous blood gas showed 6.98/45/20. A Villafana catheter was unable to be placed, and the urologist was called.? The chris trinidad was given 2 amps of bicarb, calcium, glucose and insulin.? A central line was placed.? The urologist was unable to place a trans urethral Villafana catheter.? Therefore a suprapubic catheter was placed.? 900 cc of dark cloudy urine was returned. Noncontrast chest CT showed moderate mucous plugging of the bilateral lower lobe bronchi, with consolidation and atelectasis of nearly the entire right lower lobe, some of the right middle lobe, and some of the left lower lobe.? Scattered ill-defined nodular opacities in the right upper lobe and superior segment left lower lobe which may represent areas of aspiration.? There was a moderate-sized loculated right pleural effusion with air, suspicious for empyema, with a small left pleural effusion with some air, also suspicious for empyema. Noncontrast abdominal CT showed a large complex fluid collection in the right abdomen with fluid and air consistent with a large abscess, compressing and displacing the right kidney. The left kidney was small, with renal calculi and possibly vascular calcifications, and mild hydronephrosis. I spoke at length with the radiologist.? It is unclear what the causative factor is.? It is also unclear why a transurethral Villafana catheter was unable to be placed.? The prostate is not particularly remarkable on the CT scan.? The patient now has air in his penis, in particular the base of the penis, undoubtedly secondary to the instrumentation.? But the CT scan does not demonstrate any reason why the Villafana catheter was unable to be placed. Follow-up central venous blood gas at about 0930 showed 7.03/53/15.? Sodium was 133, potassium 5.2, bicarb 18, BUN/creatinine 108/6.5, phosphorus 12.1, magnesium 2.9, lactic acid 12.0.? PCT was 28. The patient was given fluids, 2g ceftriaxone, and Vit K, and was admitted to the ICU, where he was given more bicarb, calcium, 3 u FFP, and vitK.? He had an episode of SVT that we converted to SR with adenosine.? He underwent percutaneous placement of a pigtail drainage catheter into the perinephric abscess at the bedside by Dr. Joe.? Ultimately, 3 liters of chocolate milk- appearing fluid was suctioned out, which is showing ?4+ polys, 4+ Gram-negative rods, and 2+ Gram-positive rods on Gram stain. According to the cardiac monitors, at 15:11, while I was preparing to place an arterial line (delayed because of a supplies problem), the patient suddenly anabell?d down and went asystolic.? I was at the bedside and began CPR immediately.? The patient was immediately given an amp of epinephrine and bicarb.? Then another amp of epinephrine (assuming hyperkalemia was the problem).? At 15:15 he regained a rhythm @ about 150/min.? Bedside echo showed a very thick walled LV chamber, with excellent contractility.? We gave him adenosine (no effect, except looked more like afib) and diltiazem.? He anabell?d down.? I gave him another round of epinephrine and started him on an epinephrine drip.? He came [facility] at [facility] with a ?stable? BP and good contractility on the echo.? A femoral line was placed (separate procedure) with BP about 115/50 on Levophed at 0.8ug.? We then cardioverted him into sinus rhythm (separate procedure).? His blood pressure bumped up to 130 systolic and were able to turn the Levophed and epinephrine drips down. Bedside echo shows normal biventricular function with moderate-severe LVH, near obliteration of the LV cavity at end systole, RV:LV cavity ratio about 0.5, IVC measuring 2.3 cm, with minimal insp collapse. ABG at 1600, on AC 14/550/100%/+10 showed 6.87/92/73/-16.? We upped his bicarb drip to 150 cc/hr (3 amps in D5W), and upped his vent rate to 22, and his Vt to 600cc, with PIP 32cm, Pplat 30cm. Repeat labs at 15:23 show WBC down to 47, Hb down to 7.0 (presumably dilutional), plat down to 323, INR down to 1.9, sodium 137, potassium 5.9, BUN/creatinine 103/6.7, bicarb 18, glucose 116, calcium 8.7, phosphorus 14.5. IMPRESSION: 1. Huge right perinephric abscess.? Unclear what his initial problem was, whether it was a renal infection (ie pyelonephritis, for whatever reason) or obstructive uropathy.? But by the history and exam, this has been brewing for weeks.? The patient just refused to see a doctor. 2. Bilateral pleural effusions, R>L, with air bubbles, suspicious for empyema. 3. Septic shock with multiple organ system failure. 4. Acute resp failure 2? shock, probable aspiration, and RLL collapse. 5. Acute renal failure 2? ATN, 2? sepsis and shock. 6. Hepatic dysfxn 2? septic shock 7. Anemia.? Undoubtedly anemia of chronic disease w acute hematopoietic swanson ppression 8. Coagulopathy.? 2? hepatic dysfxn and probably dietary deficiency. 9. ID:? Ordinarily ceftriaxone should have sufficed, but given the drainage findings and how sick he is, I?ve upped his abx to vanco and Zosyn. 10. Metabolic.? Metabolic and lactic acidosis are improved with the bicarb drip and with volume resuscitation.? He?s also now on an epinephrine drip, which should help control his potassium.? Recheck K+, dialysis tonite if not improved.? We?ll place a temporary catheter tonight. 11. Metabolic encephalopathy 2? septic shock. 12. At least mild protein calorie malnutrition. Critical care time (including mult d/w pt?s sister, chrystalt visits to and hours at the bedside in the ED and ICU, including CPR, mult d/w radiology, mult d/w urology, mult d/w renal; excluding procedures):? 3.5+ hrs. [facility] Past Medical History Medical History (Updated 02/02/21 @ 16:05 by Clint Kaur MD) Retroperitoneal abscess Social History Social History Currently Displaying Signs/Symptoms of Drug Intoxication Withdrawal: No Advance Directives: No Advance Directives Information Provided: No Meds Allergies Allergy/AdvReac Type Severity Reaction Status Date / Time No Known Allergies Allergy Unverified 02/20/20 15:18 [No Known Allergies*] Active Medications: Current Medications Generic Name Dose Route Start Last Admin Trade Name Freq PRN Reason Stop Dose Admin Norepinephrine Bitartrate 8 mg in 250 mls @ 272.25 mls/hr 02/02/21 06:30 02/02/21 11:51 Levophed IVCONT 0.4 mcg/kg/min .Q56M MARÍA 90.75 mls/hr Titration Protocol 1.2 MCG/KG/MIN Fentanyl 1,000 mcg in 100 mls @ 5 mls/hr 02/02/21 07:15 02/02/21 11:50 Sublimaze/Ns IVCONT 200 mcg/hr .Q20H MARÍA 20 mls/hr Administration Protocol 50 MCG/HR Midazolam HCl 50 mg in 50 mls @ 2 mls/hr 02/02/21 07:45 02/02/21 11:30 Versed IVCONT 1 mg/hr .Q24H MARÍA 1 mls/hr Infusion 2 MG/HR Propofol 1,000 mg in 100 mls @ 3.63 mls/hr 02/02/21 09:30 02/02/21 11:31 Diprivan IVCONT 20 mcg/kg/min .Q24H MARÍA 14.52 mls/hr Administration Protocol 5 MCG/KG/MIN Calcium Gluconate 2 gm in 100 mls @ 50 mls/hr 02/02/21 12:00 02/02/21 11:31 Calcium Gluconate IV 02/02/21 13:59 50 mls/hr ONCE ONE Administration Sodium Bicarbonate 150 meq/ 1,000 mls @ 100 mls/hr 02/02/21 11:15 Dextrose IV .Q10H MARÍA Phytonadione 10 mg/ Sodium 51 mls @ 51 mls/hr 02/02/21 12:00 Chloride IV 02/02/21 12:59 ONCE ONE Naloxone HCl 0.2 mg 02/02/21 07:09 Naloxone Hcl 0.4 Mg/Ml Vial IVPUSH Q2M PRN Excessive sedation or RR < 8 Sodium Bicarbonate 50 meq 02/02/21 06:57 Sodium Bicarbonate 8.4% 50 Meq/50 Ml Vial IVPUSH 02/03/21 06:58 ONCE MARÍA Sodium Zirconium Cyclosilicate 10 gm 02/02/21 15:00 Sodium Zirconium Cyclosilicate 10 Gm Powd.Pack OG-TUBE 02/04/21 09:01 TID [facility] Physical Exam Vital Signs: Vital Signs: Last Vital Signs Temp 97.9 F 02/02/21 12:00 Pulse 92 02/02/21 12:00 Resp 23 H 02/02/21 12:00 BP 106/45 L 02/02/21 12:00 Pulse Ox 88 L 02/02/21 12:00 Body Mass Index 36.1 Results Labs CBC and Chem 7: 02/02/21 15:23 02/02/21 15:34 Labs: Laboratory Results - last 24 hr 02/02/21 02/02/21 02/02/21 05:53 05:54 05:54 MCV 83.5 MCH 24.6 L MCHC 29.5 L RDW 18.2 H Plt Count 589 H MPV 10.7 Immature Gran % (Auto) Cancelled Neut % (Auto) Cancelled Lymph % (Auto) Cancelled Hyde % (Auto) Cancelled Eos % (Auto) Cancelled Baso % (Auto) Cancelled Lymph # (Auto) Cancelled Hyde # (Auto) Cancelled Eos # (Auto) Cancelled Baso # (Auto) Cancelled Abs Immat Gran (auto) Cancelled Absolute Neuts (auto) Cancelled Absolute Nucleated RBC 0.050 H Nucleated RBC % (auto) 0.1 Neutrophils % (Manual) 64 Band Neutrophils % 26 H Lymphocytes % (Manual) 3 L Monocytes % (Manual) 6 Metamyelocytes % 1 Abs Neuts (Manual) 60.3 H Lymphocytes # (Manual) 2.0 Monocytes # (Manual) 4.0 H Metamyelocytes # 0.7 Toxic Vacuolation PRESENT Platelet Estimate INCREASED Large Platelets PRESENT Plt Morphology Comment NOTED RBC Morphology NOTED Polychromasia 1+ (0-2) Smear Path Review SEE NOTE PT INR APTT VBG pH VBG pCO2 VBG pO2 VBG HCO3 VBG O2 Saturation VBG Base Excess Anion Gap Estim Creat Clear Calc Estimated GFR POC Glucose 207 H Random Glucose Lactic Acid 18.8 H* Lactic Acid Fup @ 2Hr Lactic Acid Fup @ 4Hr Calcium Phosphorus Magnesium Total Bilirubin AST ALT Alkaline Phosphatase Total Creatine Kinase Troponin I High Sens B-Natriuretic Peptide Total Protein Albumin Procalcitonin Urine Color Urine Appearance Urine pH Ur Specific Holstein Urine Protein Urine Glucose (UA) Urine Ketones Urine Blood Urine Nitrite Ur Leukocyte Esterase Urine RBC Urine WBC Ur Squamous Epith Cells Urine Bacteria COVID-19 (TEA) COVID-19 Clin Com Blood Type Antibody Screen 02/02/21 02/02/21 02/02/21 05:54 05:55 05:59 MCV MCH MCHC RDW Plt Count MPV Immature Gran % (Auto) Neut % (Auto) Lymph % (Auto) Hyde % (Auto) Eos % (Auto) Baso % (Auto) Lymph # (Auto) Hyde # (Auto) Eos # (Auto) Baso # (Auto) Abs Immat Gran (auto) Absolute Neuts (auto) Absolute Nucleated RBC Nucleated RBC % (auto) Neutrophils % (Manual) Band Neutrophils % Lymphocytes % (Manual) Monocytes % (Manual) Metamyelocytes % Abs Neuts (Manual) Lymphocytes # (Manual) Monocytes # (Manual) Metamyelocytes # Toxic Vacuolation Platelet Estimate Large Platelets Plt Morphology Comment RBC Morphology Polychromasia Smear Path Review PT INR APTT VBG pH VBG pCO2 VBG pO2 VBG HCO3 VBG O2 Saturation VBG Base Excess Anion Gap 42 H Estim Creat Clear Calc TNP Estimated GFR 8 POC Glucose Random Glucose 245 H Lactic Acid Lactic Acid Fup @ 2Hr Lactic Acid Fup @ 4Hr Calcium 9.6 Phosphorus Magnesium Total Bilirubin 1.7 H AST 29 ALT 35 Alkaline Phosphatase 246 H Total Creatine Kinase 35 L Troponin I High Sens 10.3 B-Natriuretic Peptide 103 H Total Protein 7.1 Albumin 2.6 L Procalcitonin Urine Color Urine Appearance Urine pH Ur Specific Holstein Urine Protein Urine Glucose (UA) Urine Ketones Urine Blood Urine Nitrite Ur Leukocyte Esterase Urine RBC Urine WBC Ur Squamous Epith Cells Urine Bacteria COVID-19 (TEA) COVID-19 Clin Com See Note Blood Type Antibody Screen 02/02/21 02/02/21 02/02/21 05:59 06:04 06:48 MCV MCH MCHC RDW Plt Count MPV Immature Gran % (Auto) Neut % (Auto) Lymph % (Auto) Hyde % (Auto) Eos % (Auto) Baso % (Auto) Lymph # (Auto) Hyde # (Auto) Eos # (Auto) Baso # (Auto) Abs Immat Gran (auto) Absolute Neuts (auto) Absolute Nucleated RBC Nucleated RBC % (auto) Neutrophils % (Manual) Band Neutrophils % Lymphocytes % (Manual) Monocytes % (Manual) Metamyelocytes % Abs Neuts (Manual) Lymphocytes # (Manual) Monocytes # (Manual) Metamyelocytes # Toxic Vacuolation Platelet Estimate Large Platelets Plt Morphology Comment RBC Morphology Polychromasia Smear Path Review PT 27.7 H INR 2.4 H APTT 56.9 H VBG pH 6.98 L* VBG pCO2 45 VBG pO2 73 VBG HCO3 11 L VBG O2 Saturation 75.0 VBG Base Excess -20.0 Anion Gap Estim Creat Clear Calc Estimated GFR POC Glucose Random Glucose Lactic Acid Lactic Acid Fup @ 2Hr Lactic Acid Fup @ 4Hr Calcium Phosphorus Magnesium Total Bilirubin AST ALT Alkaline Phosphatase Total Creatine Kinase Troponin I High Sens B-Natriuretic Peptide Total Protein Albumin Procalcitonin Urine Color Urine Appearance Urine pH Ur Specific [place] Urine Protein Urine Glucose (UA) Urine Ketones Urine Blood Urine Nitrite Ur Leukocyte Esterase Urine RBC Urine WBC Ur Squamous Epith Cells Urine Bacteria COVID-19 (TEA) Negative COVID-19 Clin Com See Note Blood Type Antibody Screen 02/02/21 02/02/21 02/02/21 09:19 09:19 09:19 MCV MCH MCHC RDW Plt Count MPV Immature Gran % (Auto) Neut % (Auto) Lymph % (Auto) Hyde % (Auto) Eos % (Auto) Baso % (Auto) Lymph # (Auto) Hyde # (Auto) Eos # (Auto) Baso # (Auto) Abs Immat Gran (auto) Absolute Neuts (auto) Absolute Nucleated RBC Nucleated RBC % (auto) Neutrophils % (Manual) Band Neutrophils % Lymphocytes % (Manual) Monocytes % (Manual) Metamyelocytes % Abs Neuts (Manual) Lymphocytes # (Manual) Monocytes # (Manual) Metamyelocytes # Toxic Vacuolation Platelet Estimate Large Platelets Plt Morphology Comment RBC Morphology Polychromasia Smear Path Review PT INR APTT VBG pH VBG pCO2 VBG pO2 VBG HCO3 VBG O2 Saturation VBG Base Excess Anion Gap 29 H Estim Creat Clear Calc 16.9 Estimated GFR 9 POC Glucose Random Glucose 153 H D Lactic Acid Lactic Acid Fup @ 2Hr 12.0 H* Lactic Acid Fup @ 4Hr Calcium 8.3 L D Phosphorus 12.1 H Magnesium 2.9 H Total Bilirubin AST ALT Alkaline Phosphatase Total Creatine Kinase Troponin I High Sens B-Natriuretic Peptide Total Protein Albumin Procalcitonin 28.86 Urine Color Urine Appearance Urine pH Ur Specific Holstein Urine Protein Urine Glucose (UA) Urine Ketones Urine Blood Urine Nitrite Ur Leukocyte Esterase Urine RBC Urine WBC Ur Squamous Epith Cells Urine Bacteria COVID-19 (TEA) COVID-19 [employer] Com Blood Type Antibody Screen 02/02/21 02/02/21 02/02/21 09:25 09:48 11:15 MCV MCH MCHC RDW Plt Count MPV Immature Gran % (Auto) Neut % (Auto) Lymph % (Auto) Hyde % (Auto) Eos % (Auto) Baso % (Auto) Lymph # (Auto) Hyde # (Auto) Eos # (Auto) Baso # (Auto) Abs Immat Gran (auto) Absolute Neuts (auto) Absolute Nucleated RBC Nucleated RBC % (auto) Neutrophils % (Manual) Band Neutrophils % Lymphocytes % (Manual) Monocytes % (Manual) Metamyelocytes % Abs Neuts (Manual) Lymphocytes # (Manual) Monocytes # (Manual) Metamyelocytes # Toxic Vacuolation Platelet Estimate Large Platelets Plt Morphology Comment RBC Morphology Polychromasia Smear Path Review PT INR APTT VBG pH 7.03 L* VBG pCO2 53 VBG pO2 118 VBG HCO3 14 L VBG O2 Saturation 94.0 VBG Base Excess -15.9 Anion Gap Estim Creat Clear Calc Estimated GFR POC Glucose Random Glucose Lactic Acid Lactic Acid Fup @ 2Hr Lactic Acid Fup @ 4Hr Calcium Phosphorus Magnesium Total Bilirubin AST ALT Alkaline Phosphatase Total Creatine Kinase Troponin I High Sens B-Natriuretic Peptide Total Protein Albumin Procalcitonin Urine Color YELLOW Urine Appearance CLOUDY Urine pH 5.5 Ur Specific Holstein 1.020 Urine Protein 2+ H Urine Glucose (UA) NEG Urine Ketones NEG Urine Blood 3+ H Urine Nitrite NEG Ur Leukocyte Esterase 2+ H Urine RBC 76-150 H Urine WBC 50-75 H Ur Squamous Epith Cells TRACE Urine Bacteria 4+ COVID-19 (TEA) COVID-19 [employer] Com Blood Type O Positive Antibody Screen NEGATIVE 02/02/21 11:43 MCV MCH MCHC RDW Plt Count MPV Immature Gran % (Auto) Neut % (Auto) Lymph % (Auto) Hyde % (Auto) Eos % (Auto) Baso % (Auto) Lymph # (Auto) Hyde # (Auto) Eos # (Auto) Baso # (Auto) Abs Immat Gran (auto) Absolute Neuts (auto) Absolute Nucleated RBC Nucleated RBC % (auto) Neutrophils % (Manual) Band Neutrophils % Lymphocytes % (Manual) Monocytes % (Manual) Metamyelocytes % Abs Neuts (Manual) Lymphocytes # (Manual) Monocytes # (Manual) Metamyelocytes # Toxic Vacuolation Platelet Estimate Large Platelets Plt Morphology Comment RBC Morphology Polychromasia Smear Path Review PT INR APTT VBG pH VBG pCO2 VBG pO2 VBG HCO3 VBG O2 Saturation VBG Base Excess Anion Gap Estim Creat Clear Calc Estimated GFR POC Glucose Random Glucose Lactic Acid Lactic Acid Fup @ 2Hr Lactic Acid Fup @ 4Hr 11.7 H* Calcium Phosphorus Magnesium Total Bilirubin AST ALT Alkaline Phosphatase Total Creatine Kinase Troponin I High Sens B-Natriuretic Peptide Total Protein Albumin Procalcitonin Urine Color Urine Appearance Urine pH Ur Specific [place] Urine Protein Urine Glucose (UA) Urine Ketones Urine Blood Urine Nitrite Ur Leukocyte Esterase Urine RBC Urine WBC Ur Squamous Epith Cells Urine Bacteria COVID-19 (TEA) COVID-19 Clin Com Blood Type Antibody Screen Imaging Radiologist's Impressions: Impressions Chest X-Ray 02/02/21 06:09 IMPRESSION: Endotracheal tube 4 cm above the noelle. Nasogastric tube below the diaphragm. Bibasilar atelectasis/consolidation and scattered ill-defined lung opacities. Air at the right lung base could be related to the empyema identified on the CT chest. Abdomen/Pelvis CT 02/02/21 08:18 IMPRESSION: 1. Large complex fluid collection in the right abdomen with fluid and air consistent with a large abscess. This compresses and displaces the right kidney. Some of the abscess may be in the perirenal space. There is swelling and heterogeneity of the adjacent right iliopsoas muscle which may represent extension of infection. 2. Small left kidney with renal calculi and possibly vascular calcifications, and mild hydronephrosis. This Critical Result was discussed with Ross He M.D. on 02/02/2021 at [address] 02/02/21 09:05 IMPRESSION: 1. Endotracheal tube 4.4 cm above the noelle. Nasogastric tube in the mid thoracic esophagus. 2. Moderate mucous plugging of the bilateral lower lobe bronchi. Consolidation and atelectasis of nearly the entire right lower lobe, some of the right middle lobe, and some of the left lower lobe. Scattered ill-defined nodular opacities in the right upper lobe and superior segment left lower lobe which may represent areas of aspiration. 3. Moderate-sized loculated right pleural effusion with air suspicious for empyema. Small left pleural effusion with some air, suspicious for empyema. 4. Complex right subdiaphragmatic fluid collection with air suspicious for abscess. This Critical Result was discussed with Ross He M.D. on 02/02/2021 at 1036 hours. Critical Care Time Critical Care Time (minutes): 180
--- NOTE | 2021-02-02 14:03 | HO.RADPN ---
RADIOLOGY Narrative Narrative: US guided right perinephric abscess drain. 3L brown purulent fluid aspirated.
[2021-02-02] MEDS: Adenosine 6 MG/2 ML VIAL IVPUSH (14:10)
[2021-02-02] MEDS: Esmolol HCl/NaCl Iso 2,500 MG/250 ML IV.SOLN 7.26 MG IVCONT (14:15)
[2021-02-02] MEDS: Sodium Zirconium Cyclosilicate 10 GM POWD.PACK OG-TUBE ×2 (14:21→21:10)
[2021-02-02] MEDS: 0.9 % Sodium Chloride 1,000 ML 999 ML IV (15:15)
[2021-02-02] MEDS: Lidocaine HCl 1 % MPF 5 ML VIAL SUBCUT (15:37)
[2021-02-02 15:46] LABS: INTERNATIONAL NORM RATIO 1.9 (0.9-1.1); Prothrombin Time 21.6 SEC (9.9-13.0)
[2021-02-02] MEDS: EPINEPHrine 5 MG in Dextrose 5 % 250 ML 15 MG IVCONT (15:57)
--- NOTE | 2021-02-02 16:01 | P.CONGS_ITS ---
History of Present Illness Consult details Consult date: 02/02/21 Narrative: 56-year-old male referred to me by a large abscess on CT scan. The patient apparently was admitted being found unresponsive. He was noted to be septic in the ER. He had urinary retention and required suprapubic tube placement as well. He was immediately transferred to the intensive care unit from the ER after stabilization intubation. He required pressors as well. He was sent for a CAT scan showing a large abscess in the retroperitoneum on the right side. I was therefore asked by the hospitalist Dr. He to evaluate him. In view of the patient's mental status, no further history is available. He was apparently also being treated for kidney stones recently. Review of Systems Review of Systems: Yes unobtainable due to endotracheal tube, Unobtainable due to mental condition and Unobtainable due to mental status PMFSH Past Medical History Medical History (Updated 02/02/21 @ 16:05 by Clint Kaur MD) Retroperitoneal abscess Meds Allergies Allergy/AdvReac Type Severity Reaction Status Date / Time No Known Allergies Allergy Unverified 02/20/20 15:18 [No Known Allergies*] Active Medications: Current Medications Generic Name Dose Route Start Last Admin Trade Name Freq PRN Reason Stop Dose Admin Fentanyl 1,000 mcg in 100 mls @ 5 mls/hr 02/02/21 07:15 02/02/21 11:50 Sublimaze/Ns IVCONT 200 mcg/hr .Q20H MARÍA 20 mls/hr Administration Protocol 50 MCG/HR Midazolam HCl 50 mg in 50 mls @ 2 mls/hr 02/02/21 07:45 02/02/21 13:10 Versed IVCONT 2 mg/hr .Q24H MARÍA 2 mls/hr Infusion 2 MG/HR Propofol 1,000 mg in 100 mls @ 3.63 mls/hr 02/02/21 09:30 02/02/21 14:21 Diprivan IVCONT 20 mcg/kg/min .Q24H MARÍA 14.52 mls/hr Titration Protocol 5 MCG/KG/MIN Sodium Bicarbonate 150 meq/ 1,000 mls @ 100 mls/hr 02/02/21 11:15 02/02/21 12:26 Dextrose IV 100 mls/hr .Q10H MARÍA Administration Esmolol HCl 2,500 mg in 250 mls @ 0 mls/hr 02/02/21 14:15 02/02/21 14:15 Brevibloc/Nacl IVCONT 10 mcg/kg/min .Q0M MARÍA 7.26 mls/hr Administration Protocol Per Protocol Norepinephrine Bitartrate 8 mg in 250 mls @ 0 mls/hr 02/02/21 15:00 Levophed IVCONT .Q0M MARÍA Protocol Per Protocol Epinephrine 5 mg/ Dextrose 255 mls @ 0 mls/hr 02/02/21 15:45 IVCONT .Q0M MARÍA Protocol Per Protocol Piperacillin Sod/Tazobactam 50 mls @ 100 mls/hr 02/02/21 16:00 Sod 2.25 gm/ Sodium Chloride IV Q6H MARÍA Naloxone HCl 0.2 mg 02/02/21 07:09 Naloxone Hcl 0.4 Mg/Ml Vial IVPUSH Q2M PRN Excessive sedation or RR < 8 Sodium Bicarbonate 50 meq 02/02/21 06:57 Sodium Bicarbonate 8.4% 50 Meq/50 Ml Vial IVPUSH 02/03/21 06:58 ONCE MARÍA Sodium Zirconium Cyclosilicate 10 gm 02/02/21 15:00 02/02/21 14:21 Sodium Zirconium Cyclosilicate 10 Gm Powd.Pack OG-TUBE 02/04/21 09:01 10 gm TID MARÍA Administration Physical Exam Vital Signs: Vital Signs: Last Vital Signs Temp 98.8 F 02/02/21 14:00 Pulse 99 02/02/21 14:00 Resp 22 H 02/02/21 14:00 BP 127/39 L 02/02/21 14:00 Pulse Ox 89 L 02/02/21 14:00 Body Mass Index 36.1 Const: Other: Intubated, unresponsive, vent dependent Resp: Other: Good air entry bilaterally Cardio: Rhythm: regular rhythm GI: Other: Not distended, no guarding rebound Palpation (GI): Soft to palpation and not firm Results Labs Result diagrams: 02/03/21 05:15 02/03/21 05:15 Labs: Abnormal lab results 02/02/21 02/02/21 02/02/21 Range/Units 05:53 05:54 05:54 WBC 67.0 H* (4.8-10.8) X10*3/uL RBC 3.82 L (4.60-5.80) X10*6/uL Hgb 9.4 L (14.0-18.0) g/dl Hct 31.9 L (42-52) % MCH 24.6 L (27.0-33.0) pg MCHC 29.5 L (31.0-36.0) g/dl RDW 18.2 H (11.0-16.0) % Plt Count 589 H (160-400) X10*3/uL Absolute Nucleated RBC 0.050 H (0.0-0.012) X10*3/uL Band Neutrophils % 26 H (3-5) % Lymphocytes % (Manual) 3 L (20-40) % Abs Neuts (Manual) 60.3 H (2.2-7.9) X10*3/uL Monocytes # (Manual) 4.0 H (0.0-1.2) X10*3/uL PT (9.9-13.0) SEC INR (0.9-1.1) APTT (24.1-38.0) SEC VBG pH (7.32-7.43) VBG HCO3 (22-26) mmol/L Sodium (135-145) mmol/L Potassium (3.3-5.1) mmol/L Chloride (96-108) mmol/L Carbon Dioxide (22-29) mmol/L Anion Gap (12-20) BUN (9-16) mg/dL Creatinine (0.5-1.4) mg/dL POC Glucose 207 H (60-115) mg/dL Random Glucose (60-115) mg/dL Lactic Acid 18.8 H* (0.5-2.0) mmol/L Lactic Acid Fup @ 2Hr (0.5-2.0) mmol/L Lactic Acid Fup @ 4Hr (0.5-2.0) mmol/L Calcium (8.4-10.2) mg/dL Phosphorus (2.7-4.5) mg/dL Magnesium (1.6-2.6) mg/dL Total Bilirubin (0.0-1.0) mg/dL Alkaline Phosphatase (39-117) U/L Total Creatine Kinase (38-174) U/L B-Natriuretic Peptide (<100) pg/mL Albumin (3.5-5.0) g/dL Urine Protein (NEG-TRACE) MG/DL Urine Blood (NEG) Ur Leukocyte Esterase (NEG) Urine RBC (0) /HPF Urine WBC (0-4) /HPF 02/02/21 02/02/21 02/02/21 Range/Units 05:54 05:55 05:59 WBC (4.8-10.8) X10*3/uL RBC (4.60-5.80) X10*6/uL Hgb (14.0-18.0) g/dl Hct (42-52) % MCH (27.0-33.0) pg MCHC (31.0-36.0) g/dl RDW (11.0-16.0) % Plt Count (160-400) X10*3/uL Absolute Nucleated RBC (0.0-0.012) X10*3/uL Band Neutrophils % (3-5) % Lymphocytes % (Manual) (20-40) % Abs Neuts (Manual) (2.2-7.9) X10*3/uL Monocytes # (Manual) (0.0-1.2) X10*3/uL PT 27.7 H (9.9-13.0) SEC INR 2.4 H (0.9-1.1) APTT 56.9 H (24.1-38.0) SEC VBG pH (7.32-7.43) VBG HCO3 (22-26) mmol/L Sodium 130 L (135-145) mmol/L Potassium 5.4 H (3.3-5.1) mmol/L Chloride 83 L (96-108) mmol/L Carbon Dioxide 10 L* (22-29) mmol/L Anion Gap 42 H (12-20) BUN 111 H* (9-16) mg/dL Creatinine 7.18 H* (0.5-1.4) mg/dL POC Glucose (60-115) mg/dL Random Glucose 245 H (60-115) mg/dL Lactic Acid (0.5-2.0) mmol/L Lactic Acid Fup @ 2Hr (0.5-2.0) mmol/L Lactic Acid Fup @ 4Hr (0.5-2.0) mmol/L Calcium (8.4-10.2) mg/dL Phosphorus (2.7-4.5) mg/dL Magnesium (1.6-2.6) mg/dL Total Bilirubin 1.7 H (0.0-1.0) mg/dL Alkaline Phosphatase 246 H (39-117) U/L Total Creatine Kinase 35 L (38-174) U/L B-Natriuretic Peptide 103 H (<100) pg/mL Albumin 2.6 L (3.5-5.0) g/dL Urine Protein (NEG-TRACE) MG/DL Urine Blood (NEG) Ur Leukocyte Esterase (NEG) Urine RBC (0) /HPF Urine WBC (0-4) /HPF 02/02/21 02/02/21 02/02/21 Range/Units 06:04 09:19 09:19 WBC (4.8-10.8) X10*3/uL RBC (4.60-5.80) X10*6/uL Hgb (14.0-18.0) g/dl Hct (42-52) % MCH (27.0-33.0) pg MCHC (31.0-36.0) g/dl RDW (11.0-16.0) % Plt Count (160-400) X10*3/uL Absolute Nucleated RBC (0.0-0.012) X10*3/uL Band Neutrophils % (3-5) % Lymphocytes % (Manual) (20-40) % Abs Neuts (Manual) (2.2-7.9) X10*3/uL Monocytes # (Manual) (0.0-1.2) X10*3/uL PT (9.9-13.0) SEC INR (0.9-1.1) APTT (24.1-38.0) SEC VBG pH 6.98 L* (7.32-7.43) VBG HCO3 11 L (22-26) mmol/L Sodium 133 L (135-145) mmol/L Potassium 5.2 H (3.3-5.1) mmol/L Chloride 91 L (96-108) mmol/L Carbon Dioxide 18 L (22-29) mmol/L Anion Gap 29 H (12-20) BUN 108 H* (9-16) mg/dL Creatinine 6.52 H* (0.5-1.4) mg/dL POC Glucose (60-115) mg/dL Random Glucose 153 H D (60-115) mg/dL Lactic Acid (0.5-2.0) mmol/L Lactic Acid Fup @ 2Hr 12.0 H* (0.5-2.0) mmol/L Lactic Acid Fup @ 4Hr (0.5-2.0) mmol/L Calcium 8.3 L D (8.4-10.2) mg/dL Phosphorus 12.1 H (2.7-4.5) mg/dL Magnesium 2.9 H (1.6-2.6) mg/dL Total Bilirubin (0.0-1.0) mg/dL Alkaline Phosphatase (39-117) U/L Total Creatine Kinase (38-174) U/L B-Natriuretic Peptide (<100) pg/mL Albumin (3.5-5.0) g/dL Urine Protein (NEG-TRACE) MG/DL Urine Blood (NEG) Ur Leukocyte Esterase (NEG) Urine RBC (0) /HPF Urine WBC (0-4) /HPF 02/02/21 02/02/21 02/02/21 Range/Units 09:25 09:48 11:43 WBC (4.8-10.8) X10*3/uL RBC (4.60-5.80) X10*6/uL Hgb (14.0-18.0) g/dl Hct (42-52) % MCH (27.0-33.0) pg MCHC (31.0-36.0) g/dl RDW (11.0-16.0) % Plt Count (160-400) X10*3/uL Absolute Nucleated RBC (0.0-0.012) X10*3/uL Band Neutrophils % (3-5) % Lymphocytes % (Manual) (20-40) % Abs Neuts (Manual) (2.2-7.9) X10*3/uL Monocytes # (Manual) (0.0-1.2) X10*3/uL PT (9.9-13.0) SEC INR (0.9-1.1) APTT (24.1-38.0) SEC VBG pH 7.03 L* (7.32-7.43) VBG HCO3 14 L (22-26) mmol/L Sodium (135-145) mmol/L Potassium (3.3-5.1) mmol/L Chloride (96-108) mmol/L Carbon Dioxide (22-29) mmol/L Anion Gap (12-20) BUN (9-16) mg/dL Creatinine (0.5-1.4) mg/dL POC Glucose (60-115) mg/dL Random Glucose (60-115) mg/dL Lactic Acid (0.5-2.0) mmol/L Lactic Acid Fup @ 2Hr (0.5-2.0) mmol/L Lactic Acid Fup @ 4Hr 11.7 H* (0.5-2.0) mmol/L Calcium (8.4-10.2) mg/dL Phosphorus (2.7-4.5) mg/dL Magnesium (1.6-2.6) mg/dL Total Bilirubin (0.0-1.0) mg/dL Alkaline Phosphatase (39-117) U/L Total Creatine Kinase (38-174) U/L B-Natriuretic Peptide (<100) pg/mL Albumin (3.5-5.0) g/dL Urine Protein 2+ H (NEG-TRACE) MG/DL Urine Blood 3+ H (NEG) Ur Leukocyte Esterase 2+ H (NEG) Urine RBC 76-150 H (0) /HPF Urine WBC 50-75 H (0-4) /HPF 02/02/21 Range/Units 15:34 WBC (4.8-10.8) X10*3/uL RBC (4.60-5.80) X10*6/uL Hgb (14.0-18.0) g/dl Hct (42-52) % MCH (27.0-33.0) pg MCHC (31.0-36.0) g/dl RDW (11.0-16.0) % Plt Count (160-400) X10*3/uL Absolute Nucleated RBC (0.0-0.012) X10*3/uL Band Neutrophils % (3-5) % Lymphocytes % (Manual) (20-40) % Abs Neuts (Manual) (2.2-7.9) X10*3/uL Monocytes # (Manual) (0.0-1.2) X10*3/uL PT 21.6 H D (9.9-13.0) SEC INR 1.9 H (0.9-1.1) APTT (24.1-38.0) SEC VBG pH (7.32-7.43) VBG HCO3 (22-26) mmol/L Sodium (135-145) mmol/L Potassium (3.3-5.1) mmol/L Chloride (96-108) mmol/L Carbon Dioxide (22-29) mmol/L Anion Gap (12-20) BUN (9-16) mg/dL Creatinine (0.5-1.4) mg/dL POC Glucose (60-115) mg/dL Random Glucose (60-115) mg/dL Lactic Acid (0.5-2.0) mmol/L Lactic Acid Fup @ 2Hr (0.5-2.0) mmol/L Lactic Acid Fup @ 4Hr (0.5-2.0) mmol/L Calcium (8.4-10.2) mg/dL Phosphorus (2.7-4.5) mg/dL Magnesium (1.6-2.6) mg/dL Total Bilirubin (0.0-1.0) mg/dL Alkaline Phosphatase (39-117) U/L Total Creatine Kinase (38-174) U/L B-Natriuretic Peptide (<100) pg/mL Albumin (3.5-5.0) g/dL Urine Protein (NEG-TRACE) MG/DL Urine Blood (NEG) Ur Leukocyte Esterase (NEG) Urine RBC (0) /HPF Urine WBC (0-4) /HPF Short CBC 02/02/21 Range/Units 05:54 WBC 67.0 H* (4.8-10.8) X10*3/uL Hgb 9.4 L (14.0-18.0) g/dl Hct 31.9 L (42-52) % Plt Count 589 H (160-400) X10*3/uL BMP 02/02/21 02/02/21 05:55 09:19 Sodium 130 L 133 L Potassium 5.4 H 5.2 H Chloride 83 L 91 L Carbon Dioxide 10 L* 18 L BUN 111 H* 108 H* Creatinine 7.18 H* 6.52 H* Calcium 9.6 8.3 L D Cardiac Enzymes 02/02/21 Range/Units 05:55 Total Creatine Kinase 35 L (38-174) U/L Liver Function 02/02/21 Range/Units 05:55 Total Bilirubin 1.7 H (0.0-1.0) mg/dL AST 29 (5-37) U/L ALT 35 (0-40) U/L Alkaline Phosphatase 246 H (39-117) U/L Albumin 2.6 L (3.5-5.0) g/dL Urine 02/02/21 Range/Units 09:48 Urine Color YELLOW Urine Appearance CLOUDY Urine pH 5.5 (5.0-8.0) Ur Specific [place] 1.020 (1.005-1.025) Urine Protein 2+ H (NEG-TRACE) MG/DL Urine Glucose (UA) NEG (NEG) MG/DL All other labs normal. Assessment and Plan (1) Retroperitoneal abscess: Status: Acute The patient came in unresponsive, currently comatose, in respiratory failure, and septic. He is requiring high-dose pressors. I reviewed his CAT scan and he has a very large retroperitoneal abscess on the right. His urinalysis also shows significant RBCs and WBCs. Overall clinical findings are consistent with a large perinephric abscess with pyelonephritis. I have arran kwaku for him to undergo IR drainage at bedside because of this unstable condition. This will be an ultrasound-guided drainage to be done in the ICU so as he does not have to go to the CAT scan suite. I have discussed this with the senior assistant manager earlier this morning. The patient is critically ill at this time appears to have a very grim prognosis. No family is available at this time who can be involved with decision making. Procedures Date of Service Date of Service: 02/03/21
--- NOTE | 2021-02-02 16:03 | PHA.PROG ---
Admission Date/Time: February 02, 2021 08:52 Indication: Intra-abdominal infection Weight in k kg Adjusted body weight in K kg [place] body weight in K.6 Obesity Dosing Indication % IBW: 156% Serum Creatinine - Last 168 Hours 02/02/21 02/02/21 05:55 09:19 Creatinine 7.18 H* 6.52 H* Estimated CrCl and GFR - Last 168 Hours 02/02/21 02/02/21 05:55 09:19 Estim Creat Clear Calc TNP 16.9 Estimated GFR 8 9 Vancomycin Loading Dose: 1.25 g Current Vancomycin Dosing Regimen: 1.25 g q 48h is being used for the initial infusion regimen. Vancomycin Monitoring using AUC goal of 400 - 600 range with trough as surrogate marker: This regimen predicts an AUC of 469 with a trough of 15.8 expected. Date and Time for next Vancomycin Level to be drawn: Random level will be scheduled prior to next dose Pharmacist Comments on Vancomycin Plan: Given the patient's renal function the regimen will be closely monitored and the medication dosed by level using this regimen as a starting point. Vancomycin dosing will take advantage of [employer] as a clinical decision support tool that uses Bayesian modeling to calculate individual patient's pharmacokinetic parameters and forecast the patient's drug concentration time course with the target goal AUC 24 range of 400 - 600 mg/L/hr ~Zafar MontañoD, BCPS, BCCCP x 2395
[2021-02-02 16:08] LABS: ABG Base Excess -16.4 mmol/L; ABG HCO3 17 mmol/L (22-26); ABG pCO2 92 mmHg (32-45); ABG pCO2 TC 92 mmHg (32-45); ABG pH 6.87 (7.35-7.45); ABG pH TC 6.87 (7.35-7.45); ABG pO2 73 mmHg (83-108); ABG pO2 TC 74 (83-108)
[2021-02-02 16:12] LABS: Anion Gap 39 (12-20); Blood Urea Nitrogen 103 mg/dL (9-16); Calcium 8.7 mg/dL (8.4-10.2); Carbon Dioxide 18 mmol/L (22-29); Chloride 86 mmol/L (96-108); Creatinine Clr Calc Pharmacy 16.4; Estimated Glomerular Filt Rate 9; Glucose Random 116 mg/dL (60-115); Potassium 5.9 mmol/L (3.3-5.1); Sodium 137 mmol/L (135-145)
[2021-02-02 16:19] LABS: Phosphorus 14.5 mg/dL (2.7-4.5)
[2021-02-02 16:22] LABS: Mean Corpuscular Hemoglobin 24.6 pg (27.0-33.0); Mean Platelet Volume 10.6 fL (9.4-12.4); NRBC Pct Auto 0.9 /100WBC (0.0-0.2); Platelet Count 323 X10*3/uL (160-400); Red Blood Count 2.84 X10*6/uL (4.60-5.80); Red Cell Distribution Width 17.4 % (11.0-16.0)
[2021-02-02 16:23] LABS: WBC ABN SCTR FOR CBC 1
[2021-02-02 16:26] LABS: White Blood Count 47.1 X10*3/uL (4.8-10.8)
[2021-02-02 16:36] LABS: Band Neutrophils Percent 33 % (3-5); Lymphocytes Absolute Manual 2.4 X10*3/uL (0.6-4.8); Lymphocytes Percent Manual 5 % (20-40); Metamyelocytes Absolute 1.9 X10*3/uL; Metamyelocytes Percent 4 %; Monocytes Absolute Manual 0.9 X10*3/uL (0.0-1.2); Monocytes Percent Manual 2 % (2-11); Myelocytes Absolute 0.5 X10*/uL; Myelocytes Percent 1 %; Neutrophils Absolute Manual 41.4 X10*3/uL (2.2-7.9); Neutrophils Percent Manual 55 % (45-73); Nucleated Red Blood Cells 1 /100WBC (0-0)
[2021-02-02 16:37] LABS: Macrocytosis 1+ (5-14) /OIF; Polychromasia 1+ (0-2) /OIF; RBC Morphology NOTED
[2021-02-02 16:38] LABS: Large Platelet PRESENT; Platelet Estimate NORMAL (NORMAL); Platelet Morphology Comment NOTED
[2021-02-02] MEDS: vancomycin HCL 1,250 MG in 0.9 % Sodium Chloride 250 ML 166.67 MG IV (16:44)
[2021-02-02] MEDS: Piperacillin Sodium/Tazobactam 2.25 GM in 0.9 % Sodium Chloride 50 ML IV ×2 (16:44→21:02)
[2021-02-02] MEDS: fentaNYL citrate/NS 1,000 MCG/100 ML PLAST..BAG 10 MCG IVCONT (16:48)
[2021-02-02 17:16] LABS: ABG Base Excess -14.7 mmol/L; ABG HCO3 16 mmol/L (22-26); ABG pCO2 63 mmHg (32-45); ABG pO2 75 mmHg (83-108)
[2021-02-02 18:01] LABS: ABG Refer to POC result
[2021-02-02 18:02] LABS: ABG Refer to POC result
[2021-02-02 18:08] LABS: Glucose, Whole Blood 112 mg/dL (60-115)
--- NOTE | 2021-02-02 18:19 | W.PM.CCHP ---
Procedures Date of Service Date of Service: 02/02/21 Arterial Line Arterial Line Comments: PROCEDURE:? Insertion rightt femoral arterial line. Indications:? Septic shock with refractory hypotension, severe hypoxemic and hypercarbic respiratory failure, and multiple organ system failure.? Anesthesia:? Local.. The right groin was shaved and the left femoral artery was identified by US and marked.? The groin was prepped and draped.?? The femoral artery was cannulated directly on the first pass with the 18 gauge thin wall and the wire advanced without incident.? The arrow 18g x 6? femoral arterial cannula was inserted via Seldinger technique without complications and sutured in place with 3-0 silk x 2.? There was an excellent wave form.?? A biopatch and dry sterile dressing were applied. The patient tolerated the procedure well with no complications. Consent: Emergent-no informed consent obtained
--- NOTE | 2021-02-02 18:25 | W.PM.CCHP ---
Procedures Date of Service Date of Service: 02/02/21 Bronchoscopy Bronchoscopy Comments: PROCEDURE NOTE:? Fiberoptic bronchoscopy INDICATIONS:? Acute respiratory failure with unexplained severe hypoxemia and hypercarbia, with RLL collapse on CT scan.. PROCEDURE:? The bronchoscope was introduced without incident.? Inspection was carried out down to the level of the segmental bronchi.? The entire bronchial tree was clean, without any evidence of erythema or secretions.? The procedure was terminated without incident. No specimens were obtained. ? The patient tolerated the procedure well without complications. Consent for Procedure: Emergent-no informed consent obtained
[2021-02-02 18:27] LABS: ABG Base Excess -18.9 mmol/L; ABG HCO3 11 mmol/L (22-26); ABG pCO2 42 mmHg (32-45); ABG pCO2 TC 42 mmHg (32-45); ABG pH 7.01 (7.35-7.45); ABG pH TC 7.01 (7.35-7.45); ABG pO2 82 mmHg (83-108); ABG pO2 TC 84 (83-108)
[2021-02-02 18:42] LABS: Hematocrit 27.6 % (42-52); Hemoglobin 7.6 g/dl (14.0-18.0)
[2021-02-02 19:09] LABS: Alanine Aminotransferase 49 U/L (0-40); Albumin Level 1.8 g/dL (3.5-5.0); Alkaline Phosphatase 343 U/L (39-117); Anion Gap 39 (12-20); Aspartate Amino Transferase 156 U/L (5-37); Bilirubin Total 1.3 mg/dL (0.0-1.0); Blood Urea Nitrogen 102 mg/dL (9-16); Calcium 7.8 mg/dL (8.4-10.2); Carbon Dioxide 11 mmol/L (22-29); Chloride 94 mmol/L (96-108); Creatinine Clr Calc Pharmacy 16.9; Estimated Glomerular Filt Rate 9; Glucose Random 51 mg/dL (60-115); Magnesium 3.3 mg/dL (1.6-2.6); Potassium 5.7 mmol/L (3.3-5.1); Sodium 138 mmol/L (135-145); Total Protein 4.9 g/dL (6.5-8.0)
[2021-02-02 19:10] LABS: ABG Refer to POC result
--- NOTE | 2021-02-02 19:10 | PC.NURSE ---
1510 Pt's heart rhythm asystole code blue initiated, see chart for paperwork, ROSC obtained, started on epi drip, pt went into afib and was cardioverted x1 biphaisic 200J , converted into NSR. 80s, BP w/ some improvement. Family visited at bedside, spoke with them about pt's condition.
[2021-02-02] MEDS: Dextrose 10 % 1,000 ML 50 ML IVCONT (19:15)
[2021-02-02] MEDS: Albumin Human 25 % 100 ML IV ×4 (19:35→21:50)
--- NOTE | 2021-02-02 19:47 | W.PM.CCHP ---
Procedures Date of Service Date of Service: 02/02/21 Central Line Placement Right IJ: Central Line Comments: Late entry from emergent procedure done in the ER this am at 0745 am. Consent for Procedure: Emergent-no informed consent obtained Time out performed: Yes Sterile Technique Used: Yes Patient placed on monitor/pulse ox: Yes MD prep: mask, gown and gloves Central line prep: Chlorhexidine scrub Local anesthesia used: lidocaine 1% Amount of anesthesia used (ml): 5 Ultrasound used for placement: Yes Central line lumen inserted: triple Post procedure: sutured in place, good blood return, all ports aspirated, flushed, capped and sterile dressing applied Post procedure x-ray: tip of catheter in good position and no pneumothorax seen Patient tolerated procedure: well and no complications Complications: none
--- NOTE | 2021-02-02 19:49 | W.PM.CCHP ---
Procedures Date of Service Date of Service: 02/02/21 Central Line Placement Left SC: Central Line Comments: Left Subclavian Dialysis catheter placed under US Consent for Procedure: Emergent-no informed consent obtained Time out performed: Yes Sterile Technique Used: Yes Patient placed on monitor/pulse ox: Yes MD prep: mask, gown and gloves Central line prep: Chlorhexidine scrub Ultrasound used for placement: Yes Central line lumen inserted: triple Post procedure: sutured in place, good blood return, all ports aspirated, flushed, capped and sterile dressing applied Post procedure x-ray: tip of catheter in good position and no pneumothorax seen Patient tolerated procedure: well and no complications Complications: none
[2021-02-02] MEDS: Sodium Bicarbonate 8.4% 150 MEQ in Dextrose 5 % 850 ML IV (20:38)
[2021-02-02 20:55] LABS: Lactic Acid 20.9 mmol/L (0.5-2.0)
[2021-02-02 20:56] LABS: Reflex Lactate? Lactic Acid Added
[2021-02-02 21:44] LABS: ~Lactic Acid-LAB USE ONLY 24.5 mmol/L (0.5-2.0)
--- NOTE | 2021-02-02 22:17 | PC.NURSE ---
Assumed care of pt at 190. AT that time vitals stable with a BP of 105/44, monitor NSR< rate 80's-90's, no ectopy. O2 sat 92-94% on AC vent settings. Suprapubic cath with only 5 ml output since 1800. Dextrose 50% 1/[address] He for a glucose level of 51 and IV of 10% Dextrose begun at 50 ml/hr. Lactate 20.9 then 24.5. [employer] aware. Dialysis cath inserted left SC by William Bergman without concentration and confirmed by pCXR. Dialysis started at 2100. Not pulling off any fluid but BP dropped to 80 sys. William Bergman aware and ordered albumin 25% x2 bottles which pt received. Pt had also received 2 bottles of albumin ordered by Dr He just prior to these ordered by P[facility] making total of 4 bottles since 1899. Bp improved to 90's sys.
--- NOTE | 2021-02-02 23:01 | PC.NURSE ---
Late entry: since taking over care of pt at 1900, he has been mottled from waist down and has had cyanosis of fingertips. Color is hummel/pale. Skin is cool to touch.
[2021-02-02 23:18] LABS: Reflex Lactate? 2 Y
[2021-02-03] VITALS (22 sets, daily range): BP systolic 45–129; BP diastolic 27–52; PULSE 63–102; RESP 26; TEMP 36.7–37.1; O2SAT 89–97; BMI 40.6
[2021-02-03 00:05] LABS: Glucose, Whole Blood 14 mg/dL (60-115)
[2021-02-03 00:05] LABS: Glucose, Whole Blood 14 mg/dL (60-115)
--- NOTE | 2021-02-03 00:23 | PC.NURSE ---
Dialysis completed at 2345. Bp improved, now 110/42. Monitor continues NSR, rate 80's. Temp 98.8 core. POC done and only 14. Test repeated for same result. William Bergman at bedside and ordered 1 amp Dextrose 50% and drip of D10 increased to 80 ml/hr. Versed drip which was 0.5 mg/hr was shut off. Epi drip shut off (was 0.02 mcg/kg/hr).
[2021-02-03 00:24] LABS: Glucose, Whole Blood 132 mg/dL (60-115)
--- NOTE | 2021-02-03 00:28 | PC.NURSE ---
POC previously done was from pt's fingertip. Fingers are cyanotic and cool. POC done off karen and result 132. This result is after 1 amp of 50% glucose.
--- NOTE | 2021-02-03 01:42 | PC.NURSE ---
[facility] was called, case discussed and reviewed by them. Case was denied. Reference number [id number].
[2021-02-03] MEDS: propofoL 1,000 MG/100 ML VIAL 7.26 MG IVCONT (01:51)
[2021-02-03 02:02] LABS: Glucose, Whole Blood 84 mg/dL (60-115)
[2021-02-03] MEDS: fentaNYL citrate/NS 1,000 MCG/100 ML PLAST..BAG 2.5 MCG IVCONT (02:04)
--- NOTE | 2021-02-03 02:36 | PC.NURSE ---
Bp dropping with sys in 80's and MAP 49-55. Levophed at max rate. Vasopressin added. Started at 0.01 and titrated up to 0.04 per P[facility] OBANDO. Pt's sister Susannah was called and update on pt's status given to her by TOPHER Bergman. She is going to inform the rest of the family and get back to us regarding decision to make pt a DNR.
[2021-02-03] MEDS: Sodium Bicarbonate 8.4% 150 MEQ in Dextrose 5 % 850 ML IV (03:10)
[2021-02-03 04:47] LABS: Glucose, Whole Blood 77 mg/dL (60-115)
[2021-02-03] MEDS: Piperacillin Sodium/Tazobactam 2.25 GM in 0.9 % Sodium Chloride 50 ML IV (05:04)
--- NOTE | 2021-02-03 05:10 | PC.NURSE ---
Bp stable on Levo and Vasopressin. Monitor continues NSR, rate 70's. Temp 98.6 core. Rt side drainage bag with approx 200 ml of brown exudate. Drain cath flushed with 10 ml of NS without resistence. [place] continues with almost nil output. Suprapubic tube was irrigated easily. Pt is mottled up to his thighs. Skin is cool. Color is dusky. Unable to obtain an O2 sat. EtCO2 is 16.
[2021-02-03] MEDS: Pantoprazole Sodium 40 MG/10 ML VIAL IVPUSH (05:20)
[2021-02-03 05:28] LABS: PLT CLUMP 1; WBC ABN SCTR FOR CBC 1
[2021-02-03 05:30] LABS: Mean Corpuscular HGB Conc 26.6 g/dl (31.0-36.0); Mean Corpuscular Hemoglobin 25.3 pg (27.0-33.0); Mean Corpuscular Volume 95.4 fL (80-98); Mean Platelet Volume 9.8 fL (9.4-12.4); NRBC Pct Auto 5.9 /100WBC (0.0-0.2); Red Blood Count 2.17 X10*6/uL (4.60-5.80); Red Cell Distribution Width 17.5 % (11.0-16.0)
[2021-02-03 05:31] LABS: VBG Base Excess -28.7 mmol/L; VBG HCO3 3 mmol/L (22-26); VBG pCO2 23 mmHg; VBG pH 6.79 (7.32-7.43); VBG pO2 136 mmHg
[2021-02-03 05:32] LABS: Hematocrit 21.3 % (42-52); Hemoglobin 5.5 g/dl (14.0-18.0); Venous Blood Gas Refer to POC result
[2021-02-03 05:55] LABS: Platelet Count 87 X10*3/uL (160-400)
[2021-02-03 06:13] LABS: Band Neutrophils Percent 32 % (3-5); Lymphocytes Absolute Manual 4.7 X10*3/uL (0.6-4.8); Lymphocytes Percent Manual 11 % (20-40); Metamyelocytes Absolute 2.2 X10*3/uL; Metamyelocytes Percent 5 %; Monocytes Absolute Manual 0.9 X10*3/uL (0.0-1.2); Monocytes Percent Manual 2 % (2-11); Myelocytes Absolute 0.9 X10*/uL; Myelocytes Percent 2 %; Neutrophils Absolute Manual 34.4 X10*3/uL (2.2-7.9); Neutrophils Percent Manual 48 % (45-73); Nucleated Red Blood Cells 3 /100WBC (0-0)
[2021-02-03 06:14] LABS: Acanthocytes 1+ (0-2) /OIF; Hypochromasia 1+ (5-14) /OIF; Polychromasia 1+ (0-2) /OIF; RBC Morphology NOTED; Schistocytes 1+ (0-2) /OIF; Toxic Granulation PRESENT; Toxic Vacuolation PRESENT
[2021-02-03 06:17] LABS: Giant Platelet PRESENT; Large Platelet PRESENT; Platelet Estimate DECREASED (NORMAL); Platelet Morphology Comment NOTED
[2021-02-03 06:28] LABS: Alanine Aminotransferase 1416 U/L (0-40); Albumin Level 2.3 g/dL (3.5-5.0); Alkaline Phosphatase 487 U/L (39-117); Anion Gap 47 (12-20); Aspartate Amino Transferase 5429 U/L (5-37); Bilirubin Total 2.3 mg/dL (0.0-1.0); Blood Urea Nitrogen 62 mg/dL (9-16); C Reactive Protein 19.42 mg/dL (< or = 0.50); Calcium 7.5 mg/dL (8.4-10.2); Carbon Dioxide 5 mmol/L (22-29); Chloride 90 mmol/L (96-108); Estimated Glomerular Filt Rate 12; Glucose Random 104 mg/dL (60-115); Potassium 6.8 mmol/L (3.3-5.1); Sodium 135 mmol/L (135-145); Total Protein 4.5 g/dL (6.5-8.0)
[2021-02-03] MEDS: Sodium Bicarbonate 8.4% 50 MEQ/50 ML VIAL IVPUSH ×3 (06:39→07:04)
--- NOTE | 2021-02-03 06:56 | W.MHC.ACPN ---
Documented by User: TOPHER Amin 02/03/21 20:16 Advanced Care Planning Note Advanced Care Planning Note Time spent (in minutes): 20 Narrative: 0230 Significant effort was made to help the patient get through hemodialysis. Patient did receive 2 and half hours of it with a K1 bath. Patient received albumin overnight, given hypotension will require to add vasopressin, he also required D50 several times due to refractory hypoglycemia most likely due to his sepsis and lack of gluconeogenesis process. On exam the patient appear mottled, cold and at times would had issues getting a good respiratory wave; given all these I call the family and healthcare proxy patient's sister Susannah, to whom I expressed my concerns of the patient coding any time again. I also expressed to her that it would not be unreasonable to continue with medical care but advocated against CPR for this is becoming a futile issue. She did speak to her other brother and father and call me back stating that they still want everything done. 0650 I discussed the above with Dr. camacho and reviewed the patient's labs from this morning which reveal a worsening white count, lower H&H at 5 and 21, a significantly abnormal blood gas revealing a pH of 6.79 with a bicarb of 3 clearly indicative of refractory sepsis and eminent , at this point as medical providers and our concern of medical futility, we have switched his code status to DNR DNI. 0705 I have communicated all the above to the patient's sister Susannah who will inform her brother and father, they are more likely to come to see him in would like to hold him through until they do so , she understand that he will likely past to a better life at any time and is aware of our decision to make him DNR DNI and is in agreement with that at this point. Total time spent with this family in case overnight Including all the of 1st to make the patient get through dialysis 45 minutes. Problems Discussed (1) Retroperitoneal abscess: Documented by User: Ross He MD 02/05/21 09:14 Advanced Care Planning Note Problems Discussed (1) Retroperitoneal abscess:
[2021-02-03] MEDS: Albumin Human 25 % 100 ML IV (07:16)
[2021-02-03] MEDS: Sodium Zirconium Cyclosilicate 10 GM POWD.PACK OG-TUBE (07:19)
--- NOTE | 2021-02-03 08:11 | P.EN_ITS ---
Event Note Date of Service: 02/03/21 Event Note: Underwent ultrasound drainage of large retroperitoneal abscess yes terday 3 L of urine fluid evacuated Has continued to deteriorate clinically Hemodynamically worsening despite maximum pressors Multiorgan failure DNR now in affect, comfort measures only as per family Sister at bedside
--- NOTE | 2021-02-03 08:31 | P.PNCC_ITS ---
Subjective Subjective Date of Service: 02/03/21 Critical Care Time (minutes): 30 Comment: Mr. Arroyo was admitted to the ICU yesterday morning with septic shock and multiple organ system failure 2? to a huge right perinephric abscess that undoubtedly had been brewing for weeks. He underwent IR drainage of 3 liters of chocolate milk-looking fluid at the bedside, and was then dialyzed last night.? Blood cultures came back positive at 12 hours for Gram-negative rods. ?Despite adequate antibiotic coverage and all supportive measures, the patient developed refractory metabolic acidosis and refractory shock. Lactic acid, which had nadired at 11 late yesterday morning, shae progressively from there.? Through the night, hemodynamic support was escalated to supramaximal doses. ?Central venous blood gas this morning showed pH 6.79, pCO2 23, base excess -28. ?LFTs show shock liver. We called the family and two of the sisters came in.? The patient anabell?d down and became asystolic at 08:20 with the family at the bedside.? They expressed their appreciation for all we had done.? I also spoke with the patient's brother Vinayak by telephone. IMPRESSION: 1. Huge right perinephric abscess.? Unclear what his initial problem was, whether it was a renal infection (ie pyelonephritis, for whatever reason) or obstructive uropathy.? But by the history and exam, this has been brewing for weeks.? The patient just refused to see a doctor. 2. Refractory Septic shock with multiple organ system failure. 3. Acute resp failure 2? shock, probable aspiration. 4. Acute renal failure 2? ATN, 2? sepsis and shock. 5. Shock liver with hepatic failure. 6. Anemia.? Undoubtedly anemia of chronic disease w acute hematopoietic suppression 7. Coagulopathy.? 2? hepatic dysfxn and probably dietary deficiency. 8. ID: Gram negative septicemia. 9. Metabolic.? Refractory metabolic and lactic acidosis. 10. Metabolic encephalopathy 2? septic shock. 11. At least mild protein calorie malnutrition. Critical care time: ?30+ min. Physical Exam Vital Signs: Vital Signs: Last Vital Signs Temp 98.1 F 02/03/21 08:00 Pulse 63 02/03/21 08:00 Resp 26 H 02/03/21 08:00 BP 45/36 L 02/03/21 08:00 Pulse Ox 89 L 02/03/21 03:00 Body Mass Index 40.6 Objective Data Labs CBC & Chem 7: 02/03/21 05:15 02/03/21 05:15 Labs: Laboratory Results - last 24 hr 02/02/21 02/02/21 02/02/21 05:53 05:54 05:55 WBC RBC Hgb Hct MCV MCH MCHC RDW Plt Count MPV Immature Gran % (Auto) Neut % (Auto) Lymph % (Auto) Edwards % (Auto) Eos % (Auto) Baso % (Auto) Lymph # (Auto) Edwards # (Auto) Eos # (Auto) Baso # (Auto) Abs Immat Gran (auto) Absolute Neuts (auto) Absolute Nucleated RBC Nucleated RBC % (auto) Neutrophils % (Manual) Band Neutrophils % Lymphocytes % (Manual) Monocytes % (Manual) Metamyelocytes % Myelocytes % Abs Neuts (Manual) Lymphocytes # (Manual) Monocytes # (Manual) Metamyelocytes # Myelocytes # Nucleated RBCs Toxic Granulation Toxic Vacuolation Platelet Estimate Large Platelets Giant Platelets Plt Morphology Comment RBC Morphology Polychromasia Hypochromasia Macrocytosis Acanthocytes (Spur) Schistocytes Smear Path Review SEE NOTE PT INR O2 Saturation ABG pH at Pt Temp ABG pH (Temp Correct) ABG pCO2 at Pt Temp ABG pCO2 (Temp Corrct ABG pO2 at Pt Temp ABG pO2 (Temp Correct ABG HCO3 ABG Base Excess (Actual) VBG pH VBG pCO2 VBG pO2 VBG HCO3 VBG O2 Saturation VBG Base Excess Sodium Potassium Chloride Carbon Dioxide Anion Gap BUN Creatinine Estim Creat Clear Calc Estimated GFR POC Glucose 207 H Random Glucose Lactic Acid Lactic Acid Fup @ 2Hr Lactic Acid Fup @ 4Hr Calcium Phosphorus Magnesium Total Bilirubin AST ALT Alkaline Phosphatase Total Creatine Kinase 35 L C-Reactive Protein Total Protein Albumin Procalcitonin Urine Color Urine Appearance Urine pH Ur Specific [place] Urine Protein Urine Glucose (UA) Urine Ketones Urine Blood Urine Nitrite Ur Leukocyte Esterase Urine RBC Urine WBC Ur Squamous Epith Cells Urine Bacteria Blood Type Antibody Screen 02/02/21 02/02/21 02/02/21 09:19 09:19 09:19 WBC RBC Hgb Hct MCV MCH MCHC RDW Plt Count MPV Immature Gran % (Auto) Neut % (Auto) Lymph % (Auto) Edwards % (Auto) Eos % (Auto) Baso % (Auto) Lymph # (Auto) Edwards # (Auto) Eos # (Auto) Baso # (Auto) Abs Immat Gran (auto) Absolute Neuts (auto) Absolute Nucleated RBC Nucleated RBC % (auto) Neutrophils % (Manual) Band Neutrophils % Lymphocytes % (Manual) Monocytes % (Manual) Metamyelocytes % Myelocytes % Abs Neuts (Manual) Lymphocytes # (Manual) Monocytes # (Manual) Metamyelocytes # Myelocytes # Nucleated RBCs Toxic Granulation Toxic Vacuolation Platelet Estimate Large Platelets Giant Platelets Plt Morphology Comment RBC Morphology Polychromasia Hypochromasia Macrocytosis Acanthocytes (Spur) Schistocytes Smear Path Review PT INR O2 Saturation ABG pH at Pt Temp ABG pH (Temp Correct) ABG pCO2 at Pt Temp ABG pCO2 (Temp Corrct ABG pO2 at Pt Temp ABG pO2 (Temp Correct ABG HCO3 ABG Base Excess (Actual) VBG pH VBG pCO2 VBG pO2 VBG HCO3 VBG O2 Saturation VBG Base Excess Sodium 133 L Potassium 5.2 H Chloride 91 L Carbon Dioxide 18 L Anion Gap 29 H BUN 108 H* Creatinine 6.52 H* Estim Creat Clear Calc 16.9 Estimated GFR 9 POC Glucose Random Glucose 153 H D Lactic Acid Lactic Acid Fup @ 2Hr 12.0 H* Lactic Acid Fup @ 4Hr Calcium 8.3 L D Phosphorus 12.1 H Magnesium 2.9 H Total Bilirubin AST ALT Alkaline Phosphatase Total Creatine Kinase C-Reactive Protein Total Protein Albumin Procalcitonin 28.86 Urine Color Urine Appearance Urine pH Ur Specific [place] Urine Protein Urine Glucose (UA) Urine Ketones Urine Blood Urine Nitrite Ur Leukocyte Esterase Urine RBC Urine WBC Ur Squamous Epith Cells Urine Bacteria Blood Type Antibody Screen 02/02/21 02/02/21 02/02/21 09:25 09:48 11:15 WBC RBC Hgb Hct MCV MCH MCHC RDW Plt Count MPV Immature Gran % (Auto) Neut % (Auto) Lymph % (Auto) Edwards % (Auto) Eos % (Auto) Baso % (Auto) Lymph # (Auto) Edwards # (Auto) Eos # (Auto) Baso # (Auto) Abs Immat Gran (auto) Absolute Neuts (auto) Absolute Nucleated RBC Nucleated RBC % (auto) Neutrophils % (Manual) Band Neutrophils % Lymphocytes % (Manual) Monocytes % (Manual) Metamyelocytes % Myelocytes % Abs Neuts (Manual) Lymphocytes # (Manual) Monocytes # (Manual) Metamyelocytes # Myelocytes # Nucleated RBCs Toxic Granulation Toxic Vacuolation Platelet Estimate Large Platelets Giant Platelets Plt Morphology Comment RBC Morphology Polychromasia Hypochromasia Macrocytosis Acanthocytes (Spur) Schistocytes Smear Path Review PT INR O2 Saturation ABG pH at Pt Temp ABG pH (Temp Correct) ABG pCO2 at Pt Temp ABG pCO2 (Temp Corrct ABG pO2 at Pt Temp ABG pO2 (Temp Correct ABG HCO3 ABG Base Excess (Actual) VBG pH 7.03 L* VBG pCO2 53 VBG pO2 118 VBG HCO3 14 L VBG O2 Saturation 94.0 VBG Base Excess -15.9 Sodium Potassium Chloride Carbon Dioxide Anion Gap BUN Creatinine Estim Creat Clear Calc Estimated GFR POC Glucose Random Glucose Lactic Acid Lactic Acid Fup @ 2Hr Lactic Acid Fup @ 4Hr Calcium Phosphorus Magnesium Total Bilirubin AST ALT Alkaline Phosphatase Total Creatine Kinase C-Reactive Protein Total Protein Albumin Procalcitonin Urine Color YELLOW Urine Appearance CLOUDY Urine pH 5.5 Ur Specific [place] 1.020 Urine Protein 2+ H Urine Glucose (UA) NEG Urine Ketones NEG Urine Blood 3+ H Urine Nitrite NEG Ur Leukocyte Esterase 2+ H Urine RBC 76-150 H Urine WBC 50-75 H Ur Squamous Epith Cells TRACE Urine Bacteria 4+ Blood Type O Positive Antibody Screen NEGATIVE 02/02/21 02/02/21 02/02/21 11:43 15:23 15:34 WBC 47.1 H* RBC 2.84 L D Hgb 7.0 L* D Hct 25.0 L D MCV 88.0 MCH 24.6 L MCHC 28.0 L RDW 17.4 H Plt Count 323 D MPV 10.6 Immature Gran % (Auto) Cancelled Neut % (Auto) Cancelled Lymph % (Auto) Cancelled Edwards % (Auto) Cancelled Eos % (Auto) Cancelled Baso % (Auto) Cancelled Lymph # (Auto) Cancelled Edwards # (Auto) Cancelled Eos # (Auto) Cancelled Baso # (Auto) Cancelled Abs Immat Gran (auto) Cancelled Absolute Neuts (auto) Cancelled Absolute Nucleated RBC 0.410 H Nucleated RBC % (auto) 0.9 H Neutrophils % (Manual) 55 Band Neutrophils % 33 H Lymphocytes % (Manual) 5 L Monocytes % (Manual) 2 Metamyelocytes % 4 Myelocytes % 1 Abs Neuts (Manual) 41.4 H Lymphocytes # (Manual) 2.4 Monocytes # (Manual) 0.9 Metamyelocytes # 1.9 Myelocytes # 0.5 Nucleated RBCs 1 H Toxic Granulation Toxic Vacuolation Platelet Estimate NORMAL Large Platelets PRESENT Giant Platelets Plt Morphology Comment NOTED RBC Morphology NOTED Polychromasia 1+ (0-2) Hypochromasia Macrocytosis 1+ (5-14) Acanthocytes (Spur) Schistocytes Smear Path Review PT 21.6 H D INR 1.9 H O2 Saturation ABG pH at Pt Temp ABG pH (Temp Correct) ABG pCO2 at Pt Temp ABG pCO2 (Temp Corrct ABG pO2 at Pt Temp ABG pO2 (Temp Correct ABG HCO3 ABG Base Excess (Actual) VBG pH VBG pCO2 VBG pO2 VBG HCO3 VBG O2 Saturation VBG Base Excess Sodium Potassium Chloride Carbon Dioxide Anion Gap BUN Creatinine Estim Creat Clear Calc Estimated GFR POC Glucose Random Glucose Lactic Acid Lactic Acid Fup @ 2Hr Lactic Acid Fup @ 4Hr 11.7 H* Calcium Phosphorus Magnesium Total Bilirubin AST ALT Alkaline Phosphatase Total Creatine Kinase C-Reactive Protein Total Protein Albumin Procalcitonin Urine Color Urine Appearance Urine pH Ur Specific [place] Urine Protein Urine Glucose (UA) Urine Ketones Urine Blood Urine Nitrite Ur Leukocyte Esterase Urine RBC Urine WBC Ur Squamous Epith Cells Urine Bacteria Blood Type Antibody Screen 02/02/21 02/02/21 02/02/21 15:34 15:34 16:00 WBC RBC Hgb Hct MCV MCH MCHC RDW Plt Count MPV Immature Gran % (Auto) Neut % (Auto) Lymph % (Auto) Edwards % (Auto) Eos % (Auto) Baso % (Auto) Lymph # (Auto) Edwards # (Auto) Eos # (Auto) Baso # (Auto) Abs Immat Gran (auto) Absolute Neuts (auto) Absolute Nucleated RBC Nucleated RBC % (auto) Neutrophils % (Manual) Band Neutrophils % Lymphocytes % (Manual) Monocytes % (Manual) Metamyelocytes % Myelocytes % Abs Neuts (Manual) Lymphocytes # (Manual) Monocytes # (Manual) Metamyelocytes # Myelocytes # Nucleated RBCs Toxic Granulation Toxic Vacuolation Platelet Estimate Large Platelets Giant Platelets Plt Morphology Comment RBC Morphology Polychromasia Hypochromasia Macrocytosis Acanthocytes (Spur) Schistocytes Smear Path Review PT INR O2 Saturation 77.0 ABG pH at Pt Temp 6.87 L* ABG pH (Temp Correct) 6.87 L* ABG pCO2 at Pt Temp 92 H* ABG pCO2 (Temp Corrct 92 H* ABG pO2 at Pt Temp 73 L ABG pO2 (Temp Correct 74 L ABG HCO3 17 L ABG Base Excess (Actual) -16.4 VBG pH VBG pCO2 VBG pO2 VBG HCO3 VBG O2 Saturation VBG Base Excess Sodium 137 Potassium 5.9 H Chloride 86 L Carbon Dioxide 18 L Anion Gap 39 H BUN 103 H* Creatinine 6.72 H* Estim Creat Clear Calc 16.4 Estimated GFR 9 POC Glucose Random Glucose 116 H Lactic Acid Lactic Acid Fup @ 2Hr Lactic Acid Fup @ 4Hr Calcium 8.7 Phosphorus 14.5 H Magnesium Total Bilirubin AST ALT Alkaline Phosphatase Total Creatine Kinase C-Reactive Protein Total Protein Albumin Procalcitonin Urine Color Urine Appearance Urine pH Ur Specific [place] Urine Protein Urine Glucose (UA) Urine Ketones Urine Blood Urine Nitrite Ur Leukocyte Esterase Urine RBC Urine WBC Ur Squamous Epith Cells Urine Bacteria Blood Type Antibody Screen 02/02/21 02/02/21 02/02/21 16:08 17:07 18:18 WBC RBC Hgb Hct MCV MCH MCHC RDW Plt Count MPV Immature Gran % (Auto) Neut % (Auto) Lymph % (Auto) Edwards % (Auto) Eos % (Auto) Baso % (Auto) Lymph # (Auto) Edwards # (Auto) Eos # (Auto) Baso # (Auto) Abs Immat Gran (auto) Absolute Neuts (auto) Absolute Nucleated RBC Nucleated RBC % (auto) Neutrophils % (Manual) Band Neutrophils % Lymphocytes % (Manual) Monocytes % (Manual) Metamyelocytes % Myelocytes % Abs Neuts (Manual) Lymphocytes # (Manual) Monocytes # (Manual) Metamyelocytes # Myelocytes # Nucleated RBCs Toxic Granulation Toxic Vacuolation Platelet Estimate Large Platelets Giant Platelets Plt Morphology Comment RBC Morphology Polychromasia Hypochromasia Macrocytosis Acanthocytes (Spur) Schistocytes Smear Path Review PT INR O2 Saturation 83.0 87.0 ABG pH at Pt Temp 7.00 L* 7.01 L* ABG pH (Temp Correct) 7.01 L* ABG pCO2 at Pt Temp 63 H* 42 ABG pCO2 (Temp Corrct 42 ABG pO2 at Pt Temp 75 L 82 L ABG pO2 (Temp Correct 84 ABG HCO3 16 L 11 L ABG Base Excess (Actual) -14.7 -18.9 VBG pH VBG pCO2 VBG pO2 VBG HCO3 VBG O2 Saturation VBG Base Excess Sodium Potassium Chloride Carbon Dioxide Anion Gap BUN Creatinine Estim Creat Clear Calc Estimated GFR POC Glucose 112 Random Glucose Lactic Acid Lactic Acid Fup @ 2Hr Lactic Acid Fup @ 4Hr Calcium Phosphorus Magnesium Total Bilirubin AST ALT Alkaline Phosphatase Total Creatine Kinase C-Reactive Protein Total Protein Albumin Procalcitonin Urine Color Urine Appearance Urine pH Ur Specific [place] Urine Protein Urine Glucose (UA) Urine Ketones Urine Blood Urine Nitrite Ur Leukocyte Esterase Urine RBC Urine WBC Ur Squamous Epith Cells Urine Bacteria Blood Type Antibody Screen 02/02/21 02/02/21 02/02/21 18:30 18:30 18:30 WBC RBC Hgb 7.6 L Hct 27.6 L MCV MCH MCHC RDW Plt Count MPV Immature Gran % (Auto) Neut % (Auto) Lymph % (Auto) Edwards % (Auto) Eos % (Auto) Baso % (Auto) Lymph # (Auto) Edwards # (Auto) Eos # (Auto) Baso # (Auto) Abs Immat Gran (auto) Absolute Neuts (auto) Absolute Nucleated RBC Nucleated RBC % (auto) Neutrophils % (Manual) Band Neutrophils % Lymphocytes % (Manual) Monocytes % (Manual) Metamyelocytes % Myelocytes % Abs Neuts (Manual) Lymphocytes # (Manual) Monocytes # (Manual) Metamyelocytes # Myelocytes # Nucleated RBCs Toxic Granulation Toxic Vacuolation Platelet Estimate Large Platelets Giant Platelets Plt Morphology Comment RBC Morphology Polychromasia Hypochromasia Macrocytosis Acanthocytes (Spur) Schistocytes Smear Path Review PT INR O2 Saturation ABG pH at Pt Temp ABG pH (Temp Correct) ABG pCO2 at Pt Temp ABG pCO2 (Temp Corrct ABG pO2 at Pt Temp ABG pO2 (Temp Correct ABG HCO3 ABG Base Excess (Actual) VBG pH VBG pCO2 VBG pO2 VBG HCO3 VBG O2 Saturation VBG Base Excess Sodium 138 Potassium 5.7 H Chloride 94 L Carbon Dioxide 11 L Anion Gap 39 H BUN 102 H* Creatinine 6.55 H* Estim Creat Clear Calc 16.9 Estimated GFR 9 POC Glucose Random Glucose 51 L* Lactic Acid 20.9 H* Lactic Acid Fup @ 2Hr Lactic Acid Fup @ 4Hr Calcium 7.8 L D Phosphorus Magnesium 3.3 H Total Bilirubin 1.3 H AST 156 H ALT 49 H Alkaline Phosphatase 343 H D Total Creatine Kinase C-Reactive Protein Total Protein 4.9 L D Albumin 1.8 L D Procalcitonin Urine Color Urine Appearance Urine pH Ur Specific [place] Urine Protein Urine Glucose (UA) Urine Ketones Urine Blood Urine Nitrite Ur Leukocyte Esterase Urine RBC Urine WBC Ur Squamous Epith Cells Urine Bacteria Blood Type Antibody Screen 02/02/21 02/02/21 02/03/21 21:13 23:58 00:00 WBC RBC Hgb Hct MCV MCH MCHC RDW Plt Count MPV Immature Gran % (Auto) Neut % (Auto) Lymph % (Auto) Edwards % (Auto) Eos % (Auto) Baso % (Auto) Lymph # (Auto) Edwards # (Auto) Eos # (Auto) Baso # (Auto) Abs Immat Gran (auto) Absolute Neuts (auto) Absolute Nucleated RBC Nucleated RBC % (auto) Neutrophils % (Manual) Band Neutrophils % Lymphocytes % (Manual) Monocytes % (Manual) Metamyelocytes % Myelocytes % Abs Neuts (Manual) Lymphocytes # (Manual) Monocytes # (Manual) Metamyelocytes # Myelocytes # Nucleated RBCs Toxic Granulation Toxic Vacuolation Platelet Estimate Large Platelets Giant Platelets Plt Morphology Comment RBC Morphology Polychromasia Hypochromasia Macrocytosis Acanthocytes (Spur) Schistocytes Smear Path Review PT INR O2 Saturation ABG pH at Pt Temp ABG pH (Temp Correct) ABG pCO2 at Pt Temp ABG pCO2 (Temp Corrct ABG pO2 at Pt Temp ABG pO2 (Temp Correct ABG HCO3 ABG Base Excess (Actual) VBG pH VBG pCO2 VBG pO2 VBG HCO3 VBG O2 Saturation VBG Base Excess Sodium Potassium Chloride Carbon Dioxide Anion Gap BUN Creatinine Estim Creat Clear Calc Estimated GFR POC Glucose 14 L* 14 L* Random Glucose Lactic Acid Lactic Acid Fup @ 2Hr 24.5 H* Lactic Acid Fup @ 4Hr Calcium Phosphorus Magnesium Total Bilirubin AST ALT Alkaline Phosphatase Total Creatine Kinase C-Reactive Protein Total Protein Albumin Procalcitonin Urine Color Urine Appearance Urine pH Ur Specific [place] Urine Protein Urine Glucose (UA) Urine Ketones Urine Blood Urine Nitrite Ur Leukocyte Esterase Urine RBC Urine WBC Ur Squamous Epith Cells Urine Bacteria Blood Type Antibody Screen 09/06/2502/03/21 02/03/21 00:17 01:58 04:22 WBC RBC Hgb Hct MCV MCH MCHC RDW Plt Count MPV Immature Gran % (Auto) Neut % (Auto) Lymph % (Auto) Edwards % (Auto) Eos % (Auto) Baso % (Auto) Lymph # (Auto) Edwards # (Auto) Eos # (Auto) Baso # (Auto) Abs Immat Gran (auto) Absolute Neuts (auto) Absolute Nucleated RBC Nucleated RBC % (auto) Neutrophils % (Manual) Band Neutrophils % Lymphocytes % (Manual) Monocytes % (Manual) Metamyelocytes % Myelocytes % Abs Neuts (Manual) Lymphocytes # (Manual) Monocytes # (Manual) Metamyelocytes # Myelocytes # Nucleated RBCs Toxic Granulation Toxic Vacuolation Platelet Estimate Large Platelets Giant Platelets Plt Morphology Comment RBC Morphology Polychromasia Hypochromasia Macrocytosis Acanthocytes (Spur) Schistocytes Smear Path Review PT INR O2 Saturation ABG pH at Pt Temp ABG pH (Temp Correct) ABG pCO2 at Pt Temp ABG pCO2 (Temp Corrct ABG pO2 at Pt Temp ABG pO2 (Temp Correct ABG HCO3 ABG Base Excess (Actual) VBG pH VBG pCO2 VBG pO2 VBG HCO3 VBG O2 Saturation VBG Base Excess Sodium Potassium Chloride Carbon Dioxide Anion Gap BUN Creatinine Estim Creat Clear Calc Estimated GFR POC Glucose 132 H 84 77 Random Glucose Lactic Acid Lactic Acid Fup @ 2Hr Lactic Acid Fup @ 4Hr Calcium Phosphorus Magnesium Total Bilirubin AST ALT Alkaline Phosphatase Total Creatine Kinase C-Reactive Protein Total Protein Albumin Procalcitonin Urine Color Urine Appearance Urine pH Ur Specific [place] Urine Protein Urine Glucose (UA) Urine Ketones Urine Blood Urine Nitrite Ur Leukocyte Esterase Urine RBC Urine WBC Ur Squamous Epith Cells Urine Bacteria Blood Type Antibody Screen 02/03/21 02/03/21 02/03/21 05:15 05:15 05:25 WBC 43.0 H* RBC 2.17 L D Hgb 5.5 L* D Hct 21.3 L D MCV 95.4 D MCH 25.3 L MCHC 26.6 L RDW 17.5 H Plt Count 87 L D MPV 9.8 Immature Gran % (Auto) Cancelled Neut % (Auto) Cancelled Lymph % (Auto) Cancelled Edwards % (Auto) Cancelled Eos % (Auto) Cancelled Baso % (Auto) Cancelled Lymph # (Auto) Cancelled Edwards # (Auto) Cancelled Eos # (Auto) Cancelled Baso # (Auto) Cancelled Abs Immat Gran (auto) Cancelled Absolute Neuts (auto) Cancelled Absolute Nucleated RBC 2.550 H Nucleated RBC % (auto) 5.9 H Neutrophils % (Manual) 48 Band Neutrophils % 32 H Lymphocytes % (Manual) 11 L Monocytes % (Manual) 2 Metamyelocytes % 5 Myelocytes % 2 Abs Neuts (Manual) 34.4 H Lymphocytes # (Manual) 4.7 Monocytes # (Manual) 0.9 Metamyelocytes # 2.2 Myelocytes # 0.9 Nucleated RBCs 3 H Toxic Granulation PRESENT Toxic Vacuolation PRESENT Platelet Estimate DECREASED Large Platelets PRESENT Giant Platelets PRESENT Plt Morphology Comment NOTED RBC Morphology NOTED Polychromasia 1+ (0-2) Hypochromasia 1+ (5-14) Macrocytosis Acanthocytes (Spur) 1+ (0-2) Schistocytes 1+ (0-2) Smear Path Review PT INR O2 Saturation ABG pH at Pt Temp ABG pH (Temp Correct) ABG pCO2 at Pt Temp ABG pCO2 (Temp Corrct ABG pO2 at Pt Temp ABG pO2 (Temp Correct ABG HCO3 ABG Base Excess (Actual) VBG pH 6.79 L* VBG pCO2 23 VBG pO2 136 VBG HCO3 3 L VBG O2 Saturation 97.0 VBG Base Excess -28.7 Sodium 135 Potassium 6.8 H* Chloride 90 L Carbon Dioxide 5 L* D Anion Gap 47 H BUN 62 H Creatinine 5.12 H* Estim Creat Clear Calc 23.0 Estimated GFR 12 POC Glucose Random Glucose 104 D Lactic Acid Lactic Acid Fup @ 2Hr Lactic Acid Fup @ 4Hr Calcium 7.5 L Phosphorus 15.0 H Magnesium Total Bilirubin 2.3 H AST 5429 H ALT 1416 H Alkaline Phosphatase 487 H D Total Creatine Kinase C-Reactive Protein 19.42 H Total Protein 4.5 L Albumin 2.3 L D Procalcitonin Urine Color Urine Appearance Urine pH Ur Specific [place] Urine Protein Urine Glucose (UA) Urine Ketones Urine Blood Urine Nitrite Ur Leukocyte Esterase Urine RBC Urine WBC Ur Squamous Epith Cells Urine Bacteria Blood Type Antibody Screen Microbiology Microbiology Results: Microbiology 02/02/21 07:11 Blood - Venous Blood Culture - Preliminary Gram negative norah 02/02/21 07:11 Blood - Venous Blood Culture - Preliminary Gram negative norah 02/02/21 13:24 Sputum - Suctioned Gram Stain - Final 02/02/21 13:24 Sputum - Suctioned Sputum Culture - Preliminary Gram negative norah 02/02/21 13:23 Kidney Right Gram Stain - Final 02/02/21 13:23 Kidney Right Routine Culture - Preliminary Gram negative norah 02/02/21 13:23 Kidney Right Anaerobic Culture - Preliminary Culture in progress. Quality Stroke Does the patient have a stroke diagnosis?: No VTE Prior VTE?: No VTE Risk Level:: Medical - moderate - high VTE Device Contraindication: N/A - Device Ordered VTE Drug Contraindication: Treatment Not Indicated Critical Care Time Critical Care Time (minutes): 30
--- NOTE | 2021-02-03 11:43 | PC.NURSE ---
0745 A-line blood pressure trending down to 74/36 on max rate of Levophed and vasopressin. Code status changed to DNR by overnight PA. Family encouraged to visit per PA. notified of change in BP. No new orders. Around 0800 patient's family including sister/hcp Susannah Arroyo at bedside. 0810 BP and HR continued to trend down, MD aware and at bedside. Time of 08:20. Organ bank notified, case declined by Ana REF#[id number]. No patient belongings. Preist at bedside for prayer and last rights per Susannah's request. Post care given.
[2021-02-06 04:40] LABS: Magnesium, RBC 6.2 mg/dL (4.0-6.4)
--- NOTE | 2021-02-23 15:08 | P.DN_ITS ---
Discharge Sum: Prov Provider Primary care physician: Unknown Physician Consults: 02/02/21 18:17 Consult to General Surgery Stat Consulting Provider: Clint Kaur Reason for consultation: perinephric abscess Has provider been notified: Yes Pronouncing clinician: Ross He Discharge Sum: Diag Contributing Factors (1) Retroperitoneal abscess: Discharge Sum: Summary Date and Time Date of admission: 02/02/21 08:52 Date of : 02/03/21 Time of : 08:20 Summary Details: ? NOTE DISCHARGE DIAGNOSES: 1. Huge right perinephric abscess. 2. Refractory septic shock 3. Multiple organ system failure. 4. Acute resp failure 2? shock and probable aspiration. 5. Acute renal failure 2? ATN. 6. Shock liver 7. Hepatic failure. 8. Anemia. 9. Coagulopathy.? 2? hepatic dysfxn and probably dietary deficiency. 10. Gram negative septicemia. 11. Refractory metabolic and lactic acidosis. 12. Metabolic encephalopathy 2? septic shock. 13. At least mild protein calorie malnutrition. Mr. Arroyo was a 56 yo M w reported h/o anxiety, hypertension, and kidney stones.? According to the patient?s sister, the patient has been having pain in his right side for 4-6 weeks [employer], and trouble going to the bathroom.? He had been feeling very weak and told his sister that he couldn?t walk.? He became unresponsive the morning of admission, and a sister who lives in the same building called the ambulance. He was brought in to the ED by ambulance with a GCS of 3.? The patient was intubated in the ED immediately upon arrival.? Initial vital signs showed a heart rate of 150 and a blood pressure of 118/67.? Reportedly he was in atrial fibrillation.? No sat was able to be obtained.? Post intubation, his blood pressure dropped to 88/42.? He was noted to be severely edematous.? He was given 10 mg diltiazem, and converted to sinus rhythm at a heart rate of 85, with a blood pressure 102/42.? First reliable sat obtained with the patient on mechanical ventilation was a sat of 86% on FiO2 100%/+5.? On further exam the patient was noted to have no JVD, and 3+ lower extremity pitting edema.? The abdomen was nondistended, without bowel sounds.? Lower extremities were mottled. Labs in the ED revealed a white count of 67, hemoglobin 9.4, and platelet count of [id number].? PT was 27/2.4, PTT was 56.? Sodium was 130, potassium 5.4, chloride 83, bicarb 10, BUN/creatinine 111/7.1, glucose 245, calcium 9.6, total bili 1.7, normal AST and ALT, alk phos 246, CPK was 35, albumin was 2.6.? Lactic acid was 18, troponin was 10. COVID Tea was negative.? Venous blood gas showed 6.98/45/20. A Villafana catheter was unable to be placed, and the urologist was called.? The patient was given 2 amps of bicarb, calcium, glucose and insulin.? A central line was placed.? The urologist was unable to place a trans urethral Villafana catheter.? Therefore a suprapubic catheter was placed.? 900 cc of dark cloudy urine was returned. Noncontrast chest CT showed moderate mucous plugging of the bilateral lower lobe bronchi, with consolidation and atelectasis of nearly the entire right lower lobe, some of the right middle lobe, and some of the left lower lobe.? Scattered ill-defined nodular opacities in the right upper lobe and superior segment left lower lobe, suggestive of aspiration.? There was a moderate-sized loculated right pleural effusion with air, suspicious for empyema, with a small left pleural effusion with some air, also suspicious for empyema. Noncontrast abdominal CT showed a large complex fluid collection in the right abdomen with fluid and air, consistent with a large abscess, compressing and displacing the right kidney. The left kidney was small, with renal calculi and possibly vascular calcifications, and mild hydronephrosis. Follow-up central venous blood gas at about 0930 showed 7.03/53/15.? Sodium was 133, potassium 5.2, bicarb 18, BUN/creatinine 108/6.5, phosphorus 12.1, magnesi um 2.9, lactic acid 12.0.? PCT was 28. The patient was given fluids, 2g ceftriaxone, and Vit K, and was admitted to the ICU, where he was given more bicarb, calcium, 3 u FFP, and vitK.? He had an episode of SVT that we converted to SR with adenosine.? He underwent percutaneous placement of a pigtail drainage catheter into the perinephric abscess at the bedside by Dr. Joe.? Ultimately, 3 liters of chocolate milk- appearing fluid was suctioned out, which on Gram stain showed? 4+ polys, 4+ Gram-negative rods, and 2+ Gram-positive rods. At 3pm that day, the patient had a sudden bradyarrest.? He was treated immediately with CPR and ACLS, w ROSC. ?Bedside echo showed a very thick walled LV chamber, with excellent contractility.? A femoral arterial line was placed. ?Bedside echo showed normal biventricular function with moderate-severe LVH, near obliteration of the LV cavity at end systole, RV:LV cavity ratio about 0.5, IVC measuring 2.3 cm, with minimal insp collapse. Later in the afternoon, repeat labs showed worsening metabolic acidosis w persistent renal failure.? A dialysis catheter was placed and the patient unde rwent dialysis. Blood cultures came back positive at 12 hours for Gram-negative rods.? Despite adequate antibiotic coverage and all supportive measures, the patient developed refractory metabolic acidosis and refractory shock.? Through the night, hemodynamic support was escalated to supramaximal doses.? Despite that, pH the next morning was down to 6.79, with base excess -28.? LFTs showed shock liver. We called the family and two of the sisters came in.? While they were there, the patient anabell?d down and became asystolic.? He was allowed to pass peacefully. ?The family expressed their appreciation for all we had done. Additional Data Attending physician: Ross He MD
== END 2021-02-03 12:18 | disposition expired | DRG 720 ==
LOC: HO.ED 08:21 → HO.ICU 09:11
PROVIDERS: Physician Assistant Medical; Admitting Provider Anesthesiology; Emergency Provider Student in an Organized Health Care Education/Training Program; Visit Provider Anesthesiology
DX: A41.50 Gram-negative sepsis, unspecified (principal); J96.01 Acute respiratory failure with hypoxia; K72.01 Acute and subacute hepatic failure with coma; N15.1 Renal and perinephric abscess; N17.0 Acute kidney failure with tubular necrosis; D68.9 Coagulation defect, unspecified; E44.1 Mild protein-calorie malnutrition; E87.2 Acidosis; G93.41 Metabolic encephalopathy; Z68.41 Body mass index [BMI] 40.0-44.9, adult; N12 Tubulo-interstitial nephritis, not specified as acute or chronic; N35.919 Unspecified urethral stricture, male, unspecified site; R65.21 Severe sepsis with septic shock; R33.9 Retention of urine, unspecified; Z20.822 Contact with and (suspected) exposure to COVID-19; I48.91 Unspecified atrial fibrillation; Z51.5 Encounter for palliative care
CPT/HCPCS: 36415; 36600; 49406; 71045; 71250; 74176; 80048; 80053; 81001; 82550; 82803; 82947; 83605; 83735; 83880; 84100; 84145; 84484; 85007; 85014; 85018; 85025; 85027; 85610; 85730; 86140; 86850; 86900; 86901; 87040; 87070; 87071; 87073; 87077; 87086; 87186; 87205; 87635; 88112; 90999; 93005; 94002; 94003; 99285; J0153; J0171; J0610; J0696; J2250; J2543; J3010; J3370; J3430; P9017; P9047